=== PATIENT | female | born 1940 | race Caucasian/White ===

== ENCOUNTER 2019-04-05 11:30 | Emergency (ER) | payer OTHER, MEDICARE ==
--- OUTSIDE RECORDS SUMMARY | 2019-04-05 11:32 | XMS REPORT ---
:1940 [facility] Address [address] [place] [address] Care Team Providers Name Role Phone Unavailable Unavailable Unavailable Payers Payer Name Policy Type Policy Number Effective Date Expiration Date Problems This patient has no known problems. Allergies, Adverse Reactions, Alerts Allergy Allergy Status Severity Reaction(s) Onset Inactive Treating Comments Name Type Date Date Clinician No Known DA Active U 2018-05 Allergies -19 00:00:0 0 Medications This patient has no known medications. Results Test Description Test Time Test Comments Text Results Atomic Results Result Comments - XR FLUORO FOR SPINE 2019-02-13 16:12:00 Patient Name: STEWART HUGHES INJ Unit No: [id number] Report Has Been Amended EXAMS: CPT CODE: [id number] XR FLUORO FOR SPINE INJ 89224 Addendum - 02/13/2019 SIGNED 02/13/2019 ADDENDUM: [id number] RAD/FLLOCSPI LUMBAR TRANSFORAMINAL INJECTION REFERRING PHYSICIAN: PREOPERATIVE DIAGNOSIS: Degenerative Lumbar Disc Disease. POSTOPERATIVE DIAGNOSIS: Lumbar radiculopathy PROCEDURES PERFORMED 1. Fluoroscopically guided needle localization of the right L4, right L5, right S1 spinal nerve/nerves with transforaminal epidural steroid injection/injections. 2. Transforaminal epidurogram/epidurograms at right L4, right L5, right S1. FINDINGS: Poor filling all. Concordant provocation right L5 hip. Pain relief-100%. ANTIBIOTIC: Cefazolin ESTIMATED BLOOD LOSS: Minimal ANESTHESIA: (TIVA )Total intravenous anesthetic (patient intolerant to sedatives and hypnotics) COMPLICATIONS: None DETAILS OF PROCEDURE: After obtaining stable vital signs, informed consent and IV access, with no known contraindications to proceeding, the patient was taken to the fluoroscopy suite and placed in a prone position with all extremities padded and appropriate monitors placed. A sterile prep and drape was performed over the lumbosacral spine. Using fluoroscopic visualization at each level the insertion site was marked for a paravertebral approach to the foramen. Using standard technique, a 25 gauge needle was advanced to the base of the pedicle. In AP view, final positioning was obtained outside the 6 on the clock position on the pedicle. Then, 1 ml of Isovue-300 contrast was injected to produce the epidurograms. No paresthesias were elicited with needle insertion or injection and there were no signs of intravascular or intrathecal uptake. Then, with 1 ml of 4% lidocaine and 10 mg of triamcinolone was injected incrementally with frequent negative aspirations. There were no signs of intravascular or intrathecal uptake. Each subsequent level was done using the same technique and medications. The patient's vital signs remained stable. The patient was taken to the PACU in good condition. Addended on 01/14/2019 3:51:27 PM by Rashel Peterson. [facility] NAME: STEWART HUGHES [address] [facility] PHYS: DOCUD - Rashel Peterson MD [place], [place] [address] : 1940 AGE: 77 SEX: F LOC: UNK PHONE #: [phone] EXAM DATE: 10/06/2018 STATUS: [facility] FAX #: [phone] RAD #: D/C DT PAGE 1 Signed Report (CONTINUED) Patient Name: STEWART HUGHES Unit No: [id number] Report Has Been Amended EXAMS: CPT CODE: [id number] XR FLUORO FOR SPINE INJ 96220 <Continued> LUMBAR FACET INJECTION REFERRING PHYSICIAN: PREOPERATIVE DIAGNOSIS: 1. Lumbar facet arthropathy POSTOPERATIVE DIAGNOSIS: 1. Bilateral lumbar facet spondylosis ( arthropathy) PROCEDURES PERFORMED Fluoroscopically guided needle localization of the bilateral L3-4, bilateral L5-S1 lumbar facets with injection of local anesthetic and steroids 2. Arthrograms of the bilateral L3-4, bilateral L5-S1 lumbar facets FINDINGS: 1. Concordant provocation bilateral L5-S1 facet for back pain ANTIBIOTIC: Cefazolin ESTIMATED BLOOD LOSS: Minimal ANESTHESIA: (TIVA) Total intravenous anesthetic (patient intolerant to sedatives and hypnotics). COMPLICATIONS: None DETAILS OF PROCEDURE: After obtaining stable vital signs, informed consent and IV access, with no known contraindications to proceeding, the patient was taken to the fluoroscopy suite and placed in a prone position with all extremities padded and appropriate monitors placed. A sterile prep and drape was performed over the lumbosacral spine. Using fluoroscopic visualization at each level the insertion site was marked for a paravertebral approach to the facets. Using standard technique, a 25 gauge needle was advanced to the facets. In AP view, the needle was advanced into the facets. Then, 1 ml of Isovue-300 contrast was injected to produce the arthrograms. AP, lateral and oblique views were documented. No paresthesias were elicited with needle insertion or injection and there were no signs of intravascular or intrathecal uptake. Then, 1 ml of 0.75% bupivacaine with 1 ml of 4% lidocaine and 10 mg of triamcinolone was injected incrementally with frequent negative aspirations. There were no signs of intravascular or intrathecal uptake. Each subsequent level was done using the same technique and medications. The patient's vital signs remained stable. The patient was taken to the PACU in good condition. [facility] NAME: STEWART HUGHES [address] [facility] PHYS: DOCCHAMP - Rashel Peterson MD [place], [place] [address] : 1940 AGE: 77 SEX: F LOC: UNK PHONE #: [phone] EXAM DATE: 10/06/2018 STATUS: [facility] FAX #: [phone] RAD #: D/C DT PAGE 2 Signed Report (CONTINUED) Patient Name: STEWART HUGHES Unit No: [id number] Report Has Been Amended EXAMS: CPT CODE: [id number] XR FLUORO FOR SPINE INJ 60645 <Continued> at 1612 Reported and signed by: Rashel Peterson M.D. Addendum - 01/14/2019 SIGNED 01/14/2019 ADDENDUM: [id number] RAD/FLLOCSPI LUMBAR FACET INJECTION REFERRING PHYSICIAN: PREOPERATIVE DIAGNOSIS: 1. Lumbar facet arthropathy POSTOPERATIVE DIAGNOSIS: 1. Bilateral lumbar facet spondylosis without radiculopathy PROCEDURES PERFORMED Fluoroscopically guided needle localization of the bilateral L3-4, bilateral L5-S1 lumbar facets with injection of local anesthetic and steroids 2. Arthrograms of the bilateral L3-4, bilateral L5-S1 lumbar facets FINDINGS: 1. Concordant provocation bilateral L5-S1 facet for back pain ANTIBIOTIC: Cefazolin ESTIMATED BLOOD LOSS: Minimal ANESTHESIA: (TIVA) Total intravenous anesthetic (patient intolerant to sedatives and hypnotics). COMPLICATIONS: None DETAILS OF PROCEDURE: After obtaining stable vital signs, informed consent and IV access, with no known contraindications to proceeding, the patient was taken to the fluoroscopy suite and placed in a prone position with all extremities padded and appropriate monitors placed. A sterile prep and drape was performed over the lumbosacral spine. Using fluoroscopic visualization at each level the insertion site was marked for a paravertebral approach to the facets. Using standard technique, a 25 gauge needle was advanced to the facets. In AP view, the needle was advanced into the facets. Then, 1 ml of Isovue-300 contrast was injected to produce the arthrograms. AP, lateral and oblique views were documented. No paresthesias were elicited with needle insertion or injection and there were no signs of intravascular or intrathecal uptake. Then, 1 ml of 0.75% bupivacaine with 1 ml of 4% lidocaine and 10 mg of triamcinolone was injected incrementally [facility] NAME: STEWART HUGHES [address] [facility] PHYS: DOCUD - Doctor,Rashel Dennison MD [place], [place] [address] : 1940 AGE: 77 SEX: F LOC: UNK PHONE #: [phone] EXAM DATE: 10/06/2018 STATUS: [facility] FAX #: [phone] RAD #: D/C DT PAGE 3 Signed Report (CONTINUED) Patient Name: STEWART HUGHES Unit No: [id number] Report Has Been Amended EXAMS: CPT CODE: [id number] XR FLUORO FOR SPINE INJ 80291 <Continued> with frequent negative aspirations. There were no signs of intravascular or intrathecal uptake. Each subsequent level was done using the same technique and medications. The patient's vital signs remained stable. The patient was taken to the PACU in good condition. at 1551 Reported and signed by: Rashel Peterson M.D. Report LUMBAR TRANSFORAMINAL INJECTION REFERRING PHYSICIAN: PREOPERATIVE DIAGNOSIS: Degenerative Lumbar Disc Disease. POSTOPERATIVE DIAGNOSIS: Lumbar radiculopathy PROCEDURES PERFORMED 1. Fluoroscopically guided needle localization of the right L4, right L5, right S1 spinal nerve/nerves with transforaminal epidural steroid injection/injections. 2. Transforaminal epidurogram/epidurograms at right L4, right L5, right S1. FINDINGS: Poor filling all. Concordant provocation right L5 hip. Pain relief-100%. ANTIBIOTIC: Cefazolin ESTIMATED BLOOD LOSS: Minimal ANESTHESIA: (TIVA )Total intravenous anesthetic (patient intolerant to sedatives and hypnotics) COMPLICATIONS: None DETAILS OF PROCEDURE: After obtaining stable vital signs, informed consent and IV access, with no known contraindications to proceeding, the patient was taken to the fluoroscopy suite and placed in a prone position with all extremities padded and appropriate monitors placed. A sterile prep and drape was performed over the lumbosacral spine. Using fluoroscopic visualization at each level the insertion site was marked for a paravertebral approach to the foramen. Using standard technique, a 25 gauge needle was advanced to the base of the pedicle. In AP view, final positioning was obtained outside the 6 on the clock position on the pedicle. Then, 1 ml of Isovue-300 contrast was [facility] NAME: STEWART HUGHES [address] [facility] PHYS: DOCUD - DoctorRashel MD [place], [place] [address] : 1940 AGE: 77 SEX: F LOC: UNK PHONE #: [phone] EXAM DATE: 10/06/2018 STATUS: [facility] FAX #: [phone] RAD #: D/C DT PAGE 4 Signed Report (CONTINUED) Patient Name: STEWART HUGHES Unit No: [id number] Report Has Been Amended EXAMS: CPT CODE: [id number] XR FLUORO FOR SPINE INJ 41153 <Continued> injected to produce the epidurograms. No paresthesias were elicited with needle insertion or injection and there were no signs of intravascular or intrathecal uptake. Then, with 1 ml of 4% lidocaine and 10 mg of triamcinolone was injected incrementally with frequent negative aspirations. There were no signs of intravascular or intrathecal uptake. Each subsequent level was done using the same technique and medications. The patient's vital signs remained stable. The patient was taken to the PACU in good condition. at 1321 Reported and signed by: Rashel Peterson M.D. CC: Hernán Fried MD; Rashel Peterson MD Technologist: BABAK PABON RT(R) Transcribed D/ (2302) Michelle [facility] NAME: STEWART HUGHES [address] [facility] PHYS: Rashel Anderson MD [place] [address] : 1940 AGE: 77 SEX: F LOC: [facility] PHONE #: [phone] EXAM DATE: 10/06/2018 STATUS: [facility] FAX #: [phone] RAD #: D/C DT PAGE 5 Signed Report Patient Name: STEWART HUGHES Unit No: [id number] Report Has Been Amended EXAMS: CPT CODE: [id number] XR FLUORO FOR SPINE INJ 19107 <Continued> Orig Print D/T: S: 10/06/2018 (6483) [facility] NAME: STEWART HUGHES [address] [facility] PHYS: Rashel Anderson MD [place], [place] [address] : 1940 AGE: 77 SEX: F LOC: [facility] PHONE #: [phone] EXAM DATE: 10/06/2018 STATUS: [facility] FAX #: [phone] RAD #: D/C DT PAGE 6 Signed Report - XR FLUORO FOR SPINE 2019-01-14 15:51:00 Patient Name: STEWART HUGHES INJ Unit No: [id number] Report Has Been Amended EXAMS: CPT CODE: [id number] XR FLUORO FOR SPINE INJ 30217 Addendum - 01/14/2019 SIGNED 01/14/2019 ADDENDUM: [id number] RAD/FLLOCSPI LUMBAR FACET INJECTION REFERRING PHYSICIAN: PREOPERATIVE DIAGNOSIS: 1. Lumbar facet arthropathy POSTOPERATIVE DIAGNOSIS: 1. Bilateral lumbar facet spondylosis without radiculopathy PROCEDURES PERFORMED Fluoroscopically guided needle localization of the bilateral L3-4, bilateral L5-S1 lumbar facets with injection of local anesthetic and steroids 2. Arthrograms of the bilateral L3-4, bilateral L5-S1 lumbar facets FINDINGS: 1. Concordant provocation bilateral L5-S1 facet for back pain ANTIBIOTIC: Cefazolin ESTIMATED BLOOD LOSS: Minimal ANESTHESIA: (TIVA) Total intravenous anesthetic (patient intolerant to sedatives and hypnotics). COMPLICATIONS: None DETAILS OF PROCEDURE: After obtaining stable vital signs, informed consent and IV access, with no known contraindications to proceeding, the patient was taken to the fluoroscopy suite and placed in a prone position with all extremities padded and appropriate monitors placed. A sterile prep and drape was performed over the lumbosacral spine. Using fluoroscopic visualization at each level the insertion site was marked for a paravertebral approach to the facets. Using standard technique, a 25 gauge needle was advanced to the facets. In AP view, the needle was advanced into the facets. Then, 1 ml of Isovue-300 contrast was injected to produce the arthrograms. AP, lateral and oblique views were documented. No paresthesias were elicited with needle insertion or injection and there were no signs of intravascular or intrathecal uptake. Then, 1 ml of 0.75% bupivacaine with 1 ml of 4% lidocaine and 10 mg of triamcinolone was injected incrementally with frequent negative aspirations. There were no signs of intravascular or intrathecal uptake. Each subsequent level was done using the same technique and medications. The patient's vital signs remained stable. The patient was taken to the PACU in good condition. [facility] NAME: ELLENSTEWART GOLD [address] [facility] PHYS: DOCUD - Doctor,Rashel Dennison MD [place], [place] [address] : 1940 AGE: 77 SEX: F LOC: UNK PHONE #: [phone] EXAM DATE: 10/06/2018 STATUS: [facility] FAX #: [phone] RAD #: D/C DT PAGE 1 Signed Report (CONTINUED) Patient Name: STEWART HUGHES Unit No: [id number] Report Has Been Amended EXAMS: CPT CODE: [id number] XR FLUORO FOR SPINE INJ 80527 <Continued> at 1551 Reported and signed by: Rashel Peterson M.D. Report LUMBAR TRANSFORAMINAL INJECTION REFERRING PHYSICIAN: PREOPERATIVE DIAGNOSIS: Degenerative Lumbar Disc Disease. POSTOPERATIVE DIAGNOSIS: Lumbar radiculopathy PROCEDURES PERFORMED 1. Fluoroscopically guided needle localization of the right L4, right L5, right S1 spinal nerve/nerves with transforaminal epidural steroid injection/injections. 2. Transforaminal epidurogram/epidurograms at right L4, right L5, right S1. FINDINGS: Poor filling all. Concordant provocation right L5 hip. Pain relief-100%. ANTIBIOTIC: Cefazolin ESTIMATED BLOOD LOSS: Minimal ANESTHESIA: (TIVA )Total intravenous anesthetic (patient intolerant to sedatives and hypnotics) COMPLICATIONS: None DETAILS OF PROCEDURE: After obtaining stable vital signs, informed consent and IV access, with no known contraindications to proceeding, the patient was taken to the fluoroscopy suite and placed in a prone position with all extremities padded and appropriate monitors placed. A sterile prep and drape was performed over the lumbosacral spine. Using fluoroscopic visualization at each level the insertion site was marked for a paravertebral approach to the foramen. Using standard technique, a 25 gauge needle was advanced to the base of the pedicle. In AP view, final positioning was obtained outside the 6 on the clock position on the pedicle. Then, 1 ml of Isovue-300 contrast was injected to produce the epidurograms. No paresthesias were elicited with needle insertion or injection and there were no signs of intravascular or intrathecal uptake. Then, with 1 ml of 4% lidocaine and 10 mg of triamcinolone was injected incrementally with frequent negative aspirations. There were no signs of intravascular or intrathecal uptake. Each subsequent level was done using the same [facility] NAME: STEWART HUGHES [address] [facility] PHYS: DOCUD - Rashel Peterson MD [place], [place] [address] : 1940 AGE: 77 SEX: F LOC: UNK PHONE #: [phone] EXAM DATE: 10/06/2018 STATUS: [facility] FAX #: [phone] RAD #: D/C DT PAGE 2 Signed Report (CONTINUED) Patient Name: STEWART HUGHES Unit No: [id number] Report Has Been Amended EXAMS: CPT CODE: [id number] XR FLUORO FOR SPINE INJ 46227 <Continued> technique and medications. The patient's vital signs remained stable. The patient was taken to the PACU in good condition. at 1321 Reported and signed by: Rashel Peterson M.D. CC: Hernán Fried MD; Rashel Peterson MD Technologist: BABAK PABON RT(R) Transcribed D/ (7451) Tracey[facility] NAME: STEWART HUGHES [address] [place] [address] PHYS: Rashel Anderson MD [place] [address] : 1940 AGE: 77 SEX: F LOC: [facility] PHONE #: [phone] EXAM DATE: 10/06/2018 STATUS: [facility] FAX #: [phone] RAD #: D/C DT PAGE 3 Signed Report Patient Name: STEWART HUGHES Unit No: [id number] Report Has Been Amended EXAMS: CPT CODE: [id number] XR FLUORO FOR SPINE INJ 08012 <Continued> Orig Print D/T: S: 10/06/2018 (3824) [facility] NAME: STEWART HUGHES [address] [facility] PHYS: Rashel Anderson MD [place] [address] : 1940 AGE: 77 SEX: F LOC: UNK PHONE #: [phone] EXAM DATE: 10/06/2018 STATUS: [facility] FAX #: [phone] RAD #: D/C DT PAGE 4 Signed Report - XR FLUORO FOR SPINE 2018-10-06 13:21:00 Patient Name: STEWART HUGHES INJ Unit No: [id number] EXAMS: CPT CODE: [id number] XR FLUORO FOR SPINE INJ 47238 LUMBAR TRANSFORAMINAL INJECTION REFERRING PHYSICIAN: PREOPERATIVE DIAGNOSIS: Degenerative Lumbar Disc Disease. POSTOPERATIVE DIAGNOSIS: Lumbar radiculopathy PROCEDURES PERFORMED 1. Fluoroscopically guided needle localization of the right L4, right L5, right S1 spinal nerve/nerves with transforaminal epidural steroid injection/injections. 2. Transforaminal epidurogram/epidurograms at right L4, right L5, right S1. FINDINGS: Poor filling all. Concordant provocation right L5 hip. Pain relief-100%. ANTIBIOTIC: Cefazolin ESTIMATED BLOOD LOSS: Minimal ANESTHESIA: (TIVA )Total intravenous anesthetic (patient intolerant to sedatives and hypnotics) COMPLICATIONS: None DETAILS OF PROCEDURE: After obtaining stable vital signs, informed consent and IV access, with no known contraindications to proceeding, the patient was taken to the fluoroscopy suite and placed in a prone position with all extremities padded and appropriate monitors placed. A sterile prep and drape was performed over the lumbosacral spine. Using fluoroscopic visualization at each level the insertion site was marked for a paravertebral approach to the foramen. Using standard technique, a 25 gauge needle was advanced to the base of the pedicle. In AP view, final positioning was obtained outside the 6 on the clock position on the pedicle. Then, 1 ml of Isovue-300 contrast was injected to produce the epidurograms. No paresthesias were elicited with needle insertion or injection and there were no signs of intravascular or intrathecal uptake. Then, with 1 ml of 4% lidocaine and 10 mg of triamcinolone was injected incrementally with frequent negative aspirations. There were no signs of intravascular or intrathecal uptake. Each subsequent level was done using the same technique and medications. The patient's vital signs remained stable. The patient was taken to the PACU in good condition. at 1321 Reported and signed by: Rashel Peterson M.D. [facility] NAME: STEWART HUGHES [address] [facility] PHYS: DOCUD - Rashel Peterson MD [place], [place] [address] : 1940 AGE: 77 SEX: F LOC: [facility] PHONE #: [phone] EXAM DATE: 10/06/2018 STATUS: [facility] FAX #: [phone] RAD #: D/C DT PAGE 1 Signed Report (CONTINUED) Patient Name: STEWART HUGHES Unit No: [id number] EXAMS: CPT CODE: [id number] XR FLUORO FOR SPINE INJ 94700 <Continued> CC: Hernán Fried MD; Rashel Peterson MD Technologist: BABAK PABON RT(R) Transcribed D/ (1321) tJENNARJeisonUVD [facility] NAME: STEWART HUGHES [address] [facility] PHYS: Rashel Anderson MD [place] [address] : 1940 AGE: 77 SEX: F LOC: EDDY PHONE #: [phone] EXAM DATE: 10/06/2018 STATUS: [facility] FAX #: [phone] RAD #: D/C DT PAGE 2 Signed Report Patient Name: STEWART HUGHES Unit No: [id number] EXAMS: CPT CODE: [id number] XR FLUORO FOR SPINE INJ 98316 <Continued> Orig Print D/T: S: 10/06/2018 (1324) [facility] NAME: STEWART HUGHES [address] [facility] PHYS: Rashel Anderson MD [place] [address] : 1940 AGE: 77 SEX: F LOC: EDDY PHONE #: [phone] EXAM DATE: 10/06/2018 STATUS: [facility] FAX #: [phone] RAD #: D/C DT PAGE 3 Signed Report GLUBED 2018-10-06 12:20:00 Test Item Value Reference Range Comments GLUBED (test code=GLUBED) 111 mg/dL 60-125 [id number] 10:17:00 Test Item Value Reference Range Comments GLUBED (test code=GLUBED) 129 mg/dL 60-125 - XR FLUORO FOR SPINE [id number] 12:21:00 Patient Name: STEWART HUGHES Unit No: [id number] EXAMS: CPT CODE: [id number] XR FLUORO FOR SPINE INJ 87420 LUMBAR TRANSFORAMINAL INJECTION REFERRING PHYSICIAN:Deng Grover M.D. PREOPERATIVE DIAGNOSIS: Degenerative Lumbar Disc Disease. POSTOPERATIVE DIAGNOSIS: Right lumbar radiculopathy PROCEDURES PERFORMED 1. Fluoroscopically guided needle localization of the right L2, right L3, right L4 spinal nerve/nerves with transforaminal epidural steroid injection/injections. 2. Transforaminal epidurogram/epidurograms at right L2, right L3, right L4. FINDINGS: Poor filling right L3, right L4. Concordant provocation right L4 hip. Pain relief-100%. ANTIBIOTIC: Cefazolin ESTIMATED BLOOD LOSS: Minimal ANESTHESIA: (TIVA )Total intravenous anesthetic (patient intolerant to sedatives and hypnotics) COMPLICATIONS: None DETAILS OF PROCEDURE: After obtaining stable vital signs, informed consent and IV access, with no known contraindications to proceeding, the patient was taken to the fluoroscopy suite and placed in a prone position with all extremities padded and appropriate monitors placed. A sterile prep and drape was performed over the lumbosacral spine. Using fluoroscopic visualization at each level the insertion site was marked for a paravertebral approach tothe foramen. Using standard technique, a 25 gauge needle was advanced to the base of the pedicle. In AP view, final positioning was obtained outside the 6 on the clock position on thepedicle. Then, 1 ml of Isovue-300 contrast was injected to produce the epidurograms. No paresthesias were elicited with needle insertion or injection and there were no signs of intravascular or intrathecal uptake. Then, with 1 ml of 4% lidocaine and 10 mg of triamcinolone wasinjected incrementally with frequent negative aspirations. There were no signs of intravascular or intrathecal uptake. Each subsequent level was done using the same technique and medications. The patient's vital signs remained stable. The patient was taken to the PACU in good condition. at 1221 Reported and signed by: Rashel Peterson M.D. [facility] NAME: STEWART HUGHES [address] [facility] PHYS: DOCUD - DoctorRashel MD [place], [place] [address] : 1940 AGE: 77 SEX: F LOC: EDDY PHONE #: [phone] EXAM DATE: 06/04/2018 STATUS: [facility] FAX #: [phone] RAD #: D/C DT PAGE 1 Signed Report ( CONTINUED) Patient Name: STEWART HUGHES Unit No: [id number] EXAMS: CPT CODE: [id number] XR FLUORO FOR SPINE INJ 19289 <Continued> CC: Hernán Fried MD; Deng Grover MD Technologist: Kim Zepeda(R) Transcribed D/T: 2018 (1221) Tracey[facility] NAME: STEWART HUGHES [facility] PHYS: Rasehl Anderson MD [place] [address] : 1940 AGE: 77 SEX: F LOC: EDDY PHONE #: [phone] EXAM DATE: 06/04/2018 STATUS: [facility] FAX #: [phone] RAD #: D/C DT PAGE 2 Signed Report Patient Name: STEWART HUGHES Unit No: [id number] EXAMS: CPTCODE: [id number] XR FLUORO FOR SPINE INJ 45378 <Continued> Orig Print D/T: S : 06/04/2018 (1225) [facility] NAME: STEWART HUGHES [facility] PHYS: Rashel Anderson MD [place] [address] : 1940 AGE : 77 SEX: F LOC : EDDY PHONE #: [phone] EXAM DATE: 06/04/2018 STATUS : REG [employer] FAX #: [phone] RAD #: D/C DT PAGE 3 Signed [id number] 11:49:00 Test Item Value Reference Range Comments GLUBED (test code=GLUBED) 117 mg/dL 60-125 [id number] 10:36:00 Test Item Value Reference Range Comments GLUBED (test code=GLUBED) 115 mg/dL 60-125
[2019-04-05] MEDS ORDERED: KETOROLAC 30 MG/ML INJ ONE (12:23)
[2019-04-05] MEDS ORDERED: HYDROCODONE/APAP 10/325 TAB ONE (12:23)
[2019-04-05] MEDS ORDERED: CYCLOBENZAPRINE 10 MG TAB ONE ×2 (12:23→12:29)
--- NOTE | 2019-04-05 12:48 | RAD REPORT ---
EXAM DESCRIPTION: RAD - Hip Left 2 View - 04/05/2019 12:42 pm CLINICAL HISTORY: PAIN COMPARISON: Hip Left 2 View dated 08/06/2016 FINDINGS: Mild degenerative changes are present. No fracture, dislocation or AVN.
--- NOTE | 2019-04-05 13:19 | RAD REPORT ---
EXAM DESCRIPTION: CT - Hip Left Wo Con - 04/05/2019 1:09 pm CLINICAL HISTORY: left hip pain Left hip pain and swelling. COMPARISON: C Spine Wo Con dated 04/18/2018; Thoracic Spine W/o Cont dated 04/18/2018No comparisons FINDINGS: Prominent lower lumbar degenerative changes are present. Arthritic changes are present involving the left hip, mild in severity. No acute fractures seen. No d islocation or evidence of AVN Small air bubble in the urinary bladder could indicate cystitis. No pelvic mass or hematoma. Sigmoid diverticulosis. IMPRESSION: No acute left hip abnormality seen. Suggest clinical correlation for the possibility of cystitis All CT scans are performed using dose optimization technique as appropriate and may include automated exposure control or mA/KV adjustment according to patient size.
--- NOTE | 2019-04-05 13:58 | EDPHYS ---
Physician Documentation [facility] Name: Naila Dunbar Age: 78 yrs Sex: Female : 1940 Arrival Date: 04/05/2019 Time: 11:33 Bed 20 Private MD: ED Physician Jones Espana HPI: 04/05 12:18 This 78 yrs old Female presents to ER via Wheelchair with complaints of left kdr lateral hip pain. 12:18 The patient or guardian reports decreased range of motion, pain. that occurred at home, kdr sustained from unknown reason, There is no obvious deformity, The patient is able to ambulate with assistance. The patient is able to bear their full body weight. There is no radiation of the patient's discomfort. The complaints affect the left hip. Onset: The symptoms/episode began/occurred gradually, 2 week(s) ago. 15:15 Modifying factors: The symptoms are alleviated by nothing, the symptoms are aggravated kdr by any movement. Associated signs and symptoms: Loss of consciousness: the patient experienced no loss of consciousness, Pertinent positives: of the left hip. Severity of symptoms: At their worst the symptoms were moderate, severe, incapacitating, just prior to arrival, in the emergency department the symptoms are unchanged. The patient has been having pain in her left hip for about two weeks. had seen Dr. Fried last week who put her on steroids and T#3. The patient continues to have left later hip pain that is more pronounced with movement. When she remains still, the pain mostly resolves. She denies any specific injury. When she saw Dr. Fried earlier this week, he had suggested that she may have bursitis. The medications he prescribed have not given her relief and she could not wait until Dr. Fried returned from vacation. Historical: - Allergies: 11:45 No Known Allergies; tw2 - Home Meds: 11:45 Metformin Oral 2 times per day [Active]; tw2 11:54 atorvastatin 10 mg oral tab 1 tab once daily [Active]; colestipol micronized, 1 gram tw2 daily po [Active]; spironolactone 50 mg Oral tab 1 tab 2 times per day [Active]; Lyrica 150 mg Oral 1 cap daily [Active]; Cosamin DS 500-400 mg oral tab [Active]; - PMHx: 11:45 Diabetes - NIDDM; Hypertension; tw2 - PSHx: 11:45 back surgery; Cholecystectomy; left rotator cuff repair; tw2 - Immunization history:: Adult Immunizations. - Social history:: Smoking status: . - Ebola Screening: : Patient denies travel to an Ebola-affected area in the 21 days before illness onset. ROS: 15:15 Constitutional: Negative for fever, chills, and weight loss, Eyes: Negative for injury, kdr pain, redness, and discharge, ENT: Negative for injury, pain, and discharge, Neck: Negative for injury, pain, and swelling, Cardiovascular: Negative for chest pain, palpitations, and edema, Respiratory: Negative for shortness of breath, cough, wheezing, and pleuritic chest pain, Abdomen/GI: Negative for abdominal pain, nausea, vomiting, diarrhea, and constipation, Back: Negative for injury and pain, : Negative for injury, bleeding, discharge, and swelling, Skin: Negative for injury, rash, and discoloration, Neuro: Negative for headache, weakness, numbness, tingling, and seizure activity. Psych: Negative for depression, anxiety, suicide ideation, homicidal ideation, and hallucinations, Allergy/Immunology: Negative for hives, rash, and allergies, Endocrine: Negative for neck swelling, polydipsia, polyuria, polyphagia, and marked weight changes, Hematologic/Lymphatic: Negative for swollen nodes, abnormal bleeding, and unusual bruising. 15:15 MS/extremity: Positive for decreased range of motion, pain, tenderness, of the left hip. Exam: 15:15 Constitutional: This is a well developed, well nourished patient who is awake, alert, kdr and in no acute distress. Head/Face: Normocephalic, atraumatic. Eyes: Pupils equal round and reactive to light, extra-ocular motions intact. Lids and lashes normal. Conjunctiva and sclera are non-icteric and not injected. Cornea within normal limits. Periorbital areas with no swelling, redness, or edema. Neck: Trachea midline, no thyromegaly or masses palpated, and no cervical lymphadenopathy. Supple, full range of motion without nuchal rigidity, or vertebral point tenderness. No Meningismus. Chest/axilla: Normal chest wall appearance and motion. Nontender with no deformity. No lesions are appreciated. Cardiovascular: Regular rate and rhythm with a normal S1 and S2. No gallops, murmurs, or rubs. Normal PMI, no JVD. No pulse deficits. Respiratory: Lungs have equal breath sounds bilaterally, clear to auscultation and percussion. No rales, rhonchi or wheezes noted. No increased work of breathing, no retractions or nasal flaring. Abdomen/GI: Soft, non-tender, with normal bowel sounds. No distension or tympany. No guarding or rebound. No evidence of tenderness throughout. Back: No spinal tenderness. No costovertebral tenderness. Full range of motion. Skin: Warm, dry with normal turgor. Normal color with no rashes, no lesions, and no evidence of cellulitis. Neuro: Awake and alert, GCS 15, oriented to person, place, time, and situation. Cranial nerves II-XII grossly intact. Motor strength 5/5 in all extremities. Sensory grossly intact. Cerebellar exam normal. Normal gait. Psych: Awake, alert, with orientation to person, place and time. Behavior, mood, and affect are within normal limits. 15:15 Musculoskeletal/extremity: ROM: limited active range of motion, in the left hip, limited passive range of motion, Circulation is intact in all extremities. Sensation intact. Vital Signs: 11:50 BP 155 / 90; Pulse 78; Resp 16; Temp 98.0; Pulse Ox 95% on R/A; Weight 95.25 kg; Height iw 5 ft. 6 in. (167.64 cm); Pain 8/10; 13:57 BP 127 / 80; Pulse 85; Resp 17; Pulse Ox 96% on R/A; Pain 0/10; tw2 11:50 Body Mass Index 33.89 (95.25 kg, 167.64 cm) iw MDM: 13:57 Patient medically screened. kdr 15:15 Data reviewed: vital signs, nurses notes, lab test result(s), radiologic studies. kdr Counseling: I had a detailed discussion with the patient and/or guardian regarding: the historical points, exam findings, and any diagnostic results supporting the discharge/admit diagnosis, lab results, radiology results. 04/05 12:18 Order name: Hip Left 2 View XRAY; Complete Time: 13:20 kdr 04/05 13:11 Order name: Hip Left Wo Con; Complete Time: 13:41 EDMS Administered Medications: 12:26 Drug: [place] 10 mg-325 mg 1 tabs Route: PO; tw2 13:56 Follow up: Response: No adverse reaction; Pain is decreased; RASS: Alert and Calm (0) tw2 12:27 Drug: TORadol 15 mg Route: IM; Site: right deltoid; tw2 13:55 Follow up: Response: No adverse reaction tw2 12:28 Drug: Flexeril 10 mg Route: PO; tw2 13:56 Follow up: Response: No adverse reaction tw2 12:29 CANCELLED (Duplicate Order): TORadol - Ketorolac 15 mg IVP once tw2 Disposition: 04/05/19 13:57 Discharged to Home. Impression: Pain in left hip - Degenerative changes. - Condition is Stable. - Discharge Instructions: Joint Pain, Arthritis, Musculoskeletal Pain, Hip Pain. - Prescriptions for ketorolac 10 mg Oral tablet - take 1 tablet by ORAL route every 6 hours As needed not to exceed 40 mg in 24hrs; 12 tablet. Prednisone 20 mg Oral Tablet - take 1 tablet by ORAL route once daily for 5 days; 5 tablet. Cyclobenzaprine 5 mg Oral Tablet - take 1 tablet by ORAL route 3 times per day As needed; 15 tablet. - Medication Reconciliation Form, Thank You Letter, Prescription Opioid Use form. - Follow up: Hernán Fried MD; When: 2 - 3 days; Reason: If symptoms return, Further diagnostic work-up, Recheck today's complaints, Continuance of care, Re-evaluation by your physician. - Problem is an ongoing problem. - Symptoms have improved. Signatures: Dispatcher [employer] [facility] Jones Espana MD MD kdr Cris Lora RN RN tw2 Corrections: (The following items were deleted from the chart) 11:54 11:45 Home Meds: Blood pressure meds; tw2 tw2 12:29 12:18 TORadol - Ketorolac 15 mg IVP once ordered. kdr tw2 13:11 12:19 Pelvis Wo Cont+CT.RAD.BRZ ordered. [facility] 14:13 13:57 04/05/2019 13:57 Discharged to Home. Impression: Pain in left hip - Degenerative tw2 changes. Condition is Stable. Forms are Medication Reconciliation Form, Thank You Letter, Antibiotic Education, Prescription Opioid Use. Follow up: Hernán Fried; When: 2 - 3 days; Reason: If symptoms return, Further diagnostic work-up, Recheck today's complaints, Continuance of care, Re-evaluation by your physician. Problem is an ongoing problem. Symptoms have improved. kdr
--- NOTE | 2019-04-05 13:58 | ER ---
Nurse's Notes [facility] Name: Naila Dunbar Age: 78 yrs Sex: Female : 1940 Arrival Date: 04/05/2019 Time: 11:33 Bed 20 Private MD: Diagnosis: Pain in left hip-Degenerative changes Presentation: 04/05 11:44 Transition of care: patient was not received from another setting of care. Risk tw2 Assessment: Do you want to hurt yourself or someone else? Patient reports no desire to harm self or others. Care prior to arrival: None. 11:44 Method Of Arrival: Wheelchair tw2 11:49 Presenting complaint: Patient states: chronic back pain, was diagnosed with bursitis iw recently, given a steroid shot and steroid pills by Dr. Fried. Onset of symptoms was April 01, 2019. Initial Sepsis Screen: Does the patient meet any 2 criteria? No. Patient's initial sepsis screen is negative. Does the patient have a suspected source of infection? No. Patient's initial sepsis screen is negative. 11:49 Acuity: NYLA 3 iw Triage Assessment: 14:13 General: Appears in no apparent distress. Behavior is calm, cooperative, appropriate tw2 for age. Musculoskeletal: Range of motion: intact in all extremities. Historical: - Allergies: 11:45 No Known Allergies; tw2 - Home Meds: 11:45 Metformin Oral 2 times per day [Active]; tw2 11:54 atorvastatin 10 mg oral tab 1 tab once daily [Active]; colestipol micronized, 1 gram tw2 daily po [Active]; spironolactone 50 mg Oral tab 1 tab 2 times per day [Active]; Lyrica 150 mg Oral 1 cap daily [Active]; Cosamin DS 500-400 mg oral tab [Active]; - PMHx: 11:45 Diabetes - NIDDM; Hypertension; tw2 - PSHx: 11:45 back surgery; Cholecystectomy; left rotator cuff repair; tw2 - Immunization history:: Adult Immunizations. - Social history:: Smoking status: . - Ebola Screening: : Patient denies travel to an Ebola-affected area in the 21 days before illness onset. Screenin:44 Abuse screen: Denies threats or abuse. Nutritional screening: No deficits noted. tw2 Tuberculosis screening: No symptoms or risk factors identified. Fall Risk Secondary diagnosis (15 points) impaired mobility, Ambulatory Aid- Crutches/Cane/Walker (15 pts). Assessment: 11:45 General: Appears uncomfortable, well groomed, Behavior is calm, cooperative, tw2 appropriate for age. Pain: Complains of pain in pelvis and left hip. Neuro: Level of Consciousness is awake, alert, obeys commands, Oriented to person, place, time, situation. Cardiovascular: Patient's skin is warm and dry. Respiratory: Airway is patent Respiratory effort is even, unlabored, Respiratory pattern is regular, symmetrical. GI: No signs and/or symptoms were reported involving the gastrointestinal system. : No signs and/or symptoms were reported regarding the genitourinary system. EENT: No signs and/or symptoms were reported regarding the EENT system. Derm: No signs and/or symptoms reported regarding the dermatologic system. Musculoskeletal: Range of motion: limited in left hip. 12:08 Reassessment: provider at bedside at this time. tw2 13:58 Reassessment: Patient appears in no apparent distress at this time. Patient and/or tw2 family updated on plan of care and expected duration. Pain level reassessed. Patient is alert, oriented x 3, equal unlabored respirations, skin warm/dry/pink. Patient denies pain at this time. Patient states feeling better. Patient states symptoms have improved. Vital Signs: 11:50 BP 155 / 90; Pulse 78; Resp 16; Temp 98.0; Pulse Ox 95% on R/A; Weight 95.25 kg; Height iw 5 ft. 6 in. (167.64 cm); Pain 8/10; 13:57 BP 127 / 80; Pulse 85; Resp 17; Pulse Ox 96% on R/A; Pain 0/10; tw2 11:50 Body Mass Index 33.89 (95.25 kg, 167.64 cm) iw ED Course: 11:33 Patient arrived in ED. mr 11:41 Jones Espana MD is Attending Physician. kdr 11:44 Cris Lora, ANDREW is Primary Nurse. tw2 11:44 Bed in low position. Call light in reach. Adult w/ patient. tw2 11:44 Arm band placed on. tw2 11:50 Triage completed. iw 12:42 Hip Left 2 View XRAY In Process Unspecified. EDMS 13:11 Hip Left Wo Con In Process Unspecified. EDMS 13:56 Hernán Fried MD is Referral Physician. kdr 14:13 No provider procedures requiring assistance completed. Patient did not have IV access tw2 during this emergency room visit. Administered Medications: 12:26 Drug: [place] 10 mg-325 mg 1 tabs Route: PO; tw2 13:56 Follow up: Response: No adverse reaction; Pain is decreased; RASS: Alert and Calm (0) tw2 12:27 Drug: TORadol 15 mg Route: IM; Site: right deltoid; tw2 13:55 Follow up: Response: No adverse reaction tw2 12:28 Drug: Flexeril 10 mg Route: PO; tw2 13:56 Follow up: Response: No adverse reaction tw2 12:29 CANCELLED (Duplicate Order): TORadol - Ketorolac 15 mg IVP once tw2 Outcome: 13:57 Discharge ordered by . kdr 14:13 Patient left the ED. tw2 14:13 Discharged to home via wheelchair, with family. tw2 14:13 Condition: stable 14:13 Discharge instructions given to patient, family, Instructed on discharge instructions, follow up and referral plans. no drinking with medication, no driving heavy equipment, medication usage, Demonstrated understanding of instructions, follow-up care, medications, Prescriptions given X 3. Signatures: Dispatcher [employer] EDMS Jones Espana MD MD kdr Rivera, Michelle Gilman, RN ANDREW iw Cris Lora RN RN tw2 Corrections: (The following items were deleted from the chart) 11:54 11:45 Home Meds: Blood pressure meds; tw2 tw2
[2019-04-05 15:08] VITALS: TEMP 98
[2019-04-05 15:10] VITALS: BP 127/80; O2SAT 96
== END 2019-04-05 14:13 | disposition home or self-care (01) ==
LOC: ER 11:30
DX: M25.552 Pain in left hip (principal); I10 Essential (primary) hypertension; E11.9 Type 2 diabetes mellitus without complications
CPT/HCPCS: 73700; 96372; 99283

== ENCOUNTER 2020-05-12 20:20 | Emergency (ER) | payer OTHER, MEDICARE ==
--- OUTSIDE RECORDS SUMMARY | 2020-05-12 20:22 | XMS REPORT | Clinical Summary ---
:1940 Author Organization [facility] Address [address] [place] [address] Care Team Providers Name Role Phone MD Fariha Primary Care Provider Allergies No Known Active Allergies Medications Medication Sig Dispensed Refills Start Date End Date Status pregabalin (LYRICA) 75 Take 75 mg by 0 Active MG capsule mouth 2 (two) times a day. metFORMIN (GLUCOPHAGE) Take 500 mg by 0 Active 500 mg tablet mouth 2 (two) times a day with meals. cholecalciferol, Take 2,000 Units 0 Active vitamin D3, (VITAMIN by mouth daily. D3) 2,000 unit capsule capsule colchicine 0.6 mg Take 0.6 mg by 0 Active tablet mouth daily. irbesartan-hydrochlorot Take 1 tablet by 0 Active hiazide (AVALIDE) mouth daily. 300-12.5 mg per tablet naltrexone HCl 1.5 mg. 0 Activ e (NALTREXONE MISC) atorvastatin (LIPITOR) Take 10 mg by 0 Active 10 MG tablet mouth daily. allopurinol (ZYLOPRIM) Take 300 mg by 0 Active 300 MG tablet mouth daily. colestipol (COLESTID) 1 Take 1 g by mouth 0 Active gram tablet 2 (two) times a day. Active Problems Not on file Surgical History Surgery Date Site/Laterality Comments NECK SURGERY BACK SURGERY ROTATOR CUFF REPAIR Medical History Medical History Date Comments Wears glasses Stroke (cerebrum) (HCC) Gout Diabetes (HCC) Family History Medical History Relation Name Comments Diabetes Other Gout Other Hypertension Other Stroke Other Relation Name Status Comments Other Other Social History Tobacco Use Types Packs/Day Years Used Date Former Smoker Cigars 4 Smokeless Tobacco: Current User Comments: quit 54 years ago Alcohol Use Drinks/Week oz/Week Comments Yes Sex Assigned at Date Recorded Not on file Job Start Date Occupation Industry Not on file Not on file Not on file Last Filed Vital Signs Not on file Plan of Treatment Date Type Specialty Care Team Description 05/24/2020 Clinical Support Internal Medicine Health Maintenance Due Date Last Done Comments COVID-19 VACCINE (1 of 2) 1956 SHINGLES VACCINES (#1) 1990 65+ PNEUMOCOCCAL VACCINE (1 of 1 - PPSV23) 2005 INFLUENZA VACCINE 11/14/2019 Results Not on fileafter 05/12/2019 Insurance Payer Benefit Plan / Subscriber ID Effective Dates Phone Addre ss Type Group MEDICARE MEDICARE PART A [id number] 2005-Present [place], [place] Medicare AND B AARP AARP SUPPLEMENT [id number] 2005-Present Commercial Advance Directives For more information, please contact: [phone] Type Date Recorded Patient Lock Expert Explanati on Advance Directives, Living Will 11/08/2004 9:42 AM [id number] and Medical Power of Tail Edger
--- OUTSIDE RECORDS SUMMARY | 2020-05-12 20:22 | XMS REPORT | Continuity of Care Document ---
:1940 Author Organization [facility] t Address [address] [place] [place] [address] Care Team Providers Name Role Phone Fariha SANCHEZ Primary Care Physician Payers Payer Name Policy Type Policy Number Effective Date Expiration Date S ource Problems This patient has no known problems. Allergies, Adverse Reactions, Alerts Allergy Allergy Status Severity Reaction(s) Onset Inactive Treating Comm ents Source Name Type Date Date Clinician No Known DA Active U [facility] 06-03 [place] [facility] 00[facility] Family History Family Member Diagnosis Comments Start Date Stop Date Source Other Diabetes [facility] Other Gout [facility] Other Hypertension [facility] Other Stroke [facility] Social History Social Habit Start Date Stop Date Quantity Comments Source History of Cigar Smoker [facility] tobacco use Sex Assigned At [facility] Tobacco use and 2018-05-13 2018-05-13 Current user [facility] exposure 00:00:00 00:00:00 Alcohol intake 2018-05-13 2018-05-13 Current drinker [place] 00:00:00 00:00:00 of alcohol (finding) Tobacco Comment 2018-05-05 2018-05-05 quit 54 years [place] 00:00:00 00:00:00 ago Smoking Status Start Date Stop Date Source Former smoker 2018-05-13 00:00:00 2018-05-13 00:00:00 [facility] Medications Ordered Filled Start Stop Current Ordering Indication Dosage Frequency Signature Comments Components Source Medication Medication Date Date Medication? Clinician (SIG) Name Name pregabalin Yes 75mg Q.5D Take 75 mg [place] (LYRICA) 75 1-29 by mouth 2 Me thodi MG capsule 11:38: (two) st 43 times a day. metFORMIN Yes 500mg Q.5D Take 500 [place] [address] (GLUCOPHAGE 1-29 mg by Methodi ) 500 mg 11:38: mouth 2 st tablet 43 (two) times a day with meals. cholecalcif Yes 2000U QD Take 2,[address] [address], 1-29 Units by [facility] vitamin D3, 11:38: mouth st (VITAMIN 43 daily. D3) 2,000 unit capsule capsule colchicine Yes .6mg QD Take 0.6 [place] 0.6 mg 1-29 mg by [facility]i tablet 11:38: mouth st 43 daily. irbesartan- Yes 1{tbl} QD Take 1 [place] hydrochloro 1-29 tablet by Met hodi thiazide 11:38: mouth st (AVALIDE) 43 daily. 300-12.5 mg per tablet naltrexone Yes 1.5mg 1.5 mg. [place] HCl 1-29 Methodi (NALTREXONE 11:38: st MISC) 43 atorvastati Yes 10mg QD Take 10 mg [place] n (LIPITOR) 1-29 by mouth Meth pricila 10 MG 11:38: daily. st tablet 43 allopurinol Yes 300mg QD Take 300 [place] (ZYLOPRIM) 1-29 mg by Methodi 300 MG 11:38: mouth st tablet 43 daily. colestipol Yes 1g Q.5D Take 1 g [place] st[place] (COLESTID) 1-29 by mouth 2 Met hodi 1 gram 11:38: (two) st tablet 43 times a day. Procedures This patient has no known procedures. Plan of Care Planned Activity Planned Date Details Comments Source Future Scheduled 2019-11-14 INFLUENZA VACCINE [facility] Test 00:00:00 [code = INFLUENZA VACCINE] Future Scheduled 2005 65+ PNEUMOCOCCAL [facility] Test 00:00:00 VACCINE (1 of 1 - PPSV23) [code = 65+ PNEUMOCOCCAL VACCINE (1 of 1 - PPSV23)] Future Scheduled 1990 SHINGLES VACCINES (#1) [place] [facility] Test 00:00:00 [code = SHINGLES VACCINES (#1)] Future Scheduled 1956 COVID-19 VACCINE (1 of [place] [facility] Test 00:00:00 2) [code = COVID-19 VACCINE (1 of 2)] Results Test Description Test Time Test Comments Results Result [facility] e Comments - XR FLUORO FOR 2019-02-13 Patient Name: SPINE INJ 16:12:00 STEWART HUGHES Unit No: [id number] Report Has Been Amended EXAMS: CPT CODE: [id number] XR FLUORO FOR SPINE INJ 30223 Addendum - 02/13/2019 SIGNED 02/13/2019 ADDENDUM: [id number] RAD/FLLOCSPI LUMBAR TRANSFORAMINAL INJECTION REFERRING PHYSICIAN: PREOPERATIVE DIAGNOSIS: Degenerative Lumbar Disc Disease. POSTOPERATIVE DIAGNOSIS: Lumbar radiculopathy PROCEDURES PERFORMED 1. Fluoroscopically guided needle localization of the right L4, right L5, right S1 spinal nerve/nerves with transforaminal epidural steroid injection/injections. 2. Transforaminal epidurogram/epidurogram s at right L4, right L5, right S1. [...] on 01/14/2019 3:51:27 PM by Rashel Peterson. [facility] NAME: STEWART HUGHES [address] [facility] PHYS: DANNY - Rashel Peterson MD [place], [place] [address] : 1940 AGE: 77 SEX: F LOC: UNK PHONE #: [phone] EXAM DATE: 10/06/2018 STATUS: DEP [facility] FAX #: [phone] RAD #: D/C DT PAGE 1 Signed Report (CONTINUED) Patient Name: STEWART HUGHES Unit No: [id number] Report Has Been Amended EXAMS: CPT CODE: [id number] XR FLUORO FOR SPINE INJ 10563 <Continued> LUMBAR FACET INJECTION REFERRING PHYSICIAN: PREOPERATIVE [...] taken to the PACU in good condition. [facility] NAME: STEWART HUGHES [address] [facility] PHYS: DOCUD - DoctorRashel MD [place], [place] [address] : 1940 AGE: 77 SEX: F LOC: UNK PHONE #: [phone] EXAM DATE: 10/06/2018 STATUS: DEP [facility] FAX #: [phone] RAD #: D/C DT PAGE 2 Signed Report (CONTINUED) Patient Name: STEWART HUGHES Unit No: [id number] Report Has Been Amended EXAMS: CPT CODE: [id number] XR FLUORO FOR SPINE INJ 65503 <Continued> at 1612 Reported and signed by: Rashel Peterson M.D. Addendum - 01/14/2019 SIGNED 01/14/2019 ADDENDUM: [id number] RAD/FLLOCSPI LUMBAR FACET INJECTION REFERRING PHYSICIAN: PREOPERATIVE [...] 10 mg of triamcinolone was injected incrementally [facility] NAME: STEWART HUGHES [address] [facility] PHYS: DANNY - Rashel Peterson MD [place], [place] [address] : 1940 AGE: 77 SEX: F LOC: [place] PHONE #: [phone] EXAM DATE: 10/06/2018 STATUS: [facility] FAX #: [phone] RAD #: D/C DT PAGE 3 Signed Report (CONTINUED) Patient Name: STEWART HUGHES Unit No: [id number] Report Has Been Amended EXAMS: CPT CODE: [id number] XR FLUORO FOR SPINE INJ 92335 <Continued> with frequent negative aspirations. There were no signs of intravascular or intrathecal uptake. Each subsequent level was done using the same technique and medications. The patient's vital signs remained stable. The patient was taken to the PACU in good condition. at 4051 Reported and signed by: Rashel Peterson M.D. Report LUMBAR TRANSFORAMINAL INJECTION REFERRING PHYSICIAN: PREOPERATIVE DIAGNOSIS: Degenerative Lumbar Disc Disease. POSTOPERATIVE DIAGNOSIS: Lumbar radiculopathy PROCEDURES PERFORMED 1. Fluoroscopically guided needle localization of the right L4, right L5, right S1 spinal nerve/nerves with transforaminal epidural steroid injection/injections. 2. Transforaminal epidurogram/epidurogram s at right L4, right L5, right S1. [...] Then, 1 ml of Isovue-300 contrast was [facility] NAME: STEWART HUGHES [address] [facility] PHYS: DOCUD - Rashel Peterson MD [place], [place] [address] : 1940 AGE: 77 SEX: F LOC: [place] PHONE #: [phone] EXAM DATE: 10/06/2018 STATUS: [facility] FAX #: [phone] RAD #: D/C DT PAGE 4 Signed Report (CONTINUED) Patient Name: STEWART HUGHES Unit No: [id number] Report Has Been Amended EXAMS: CPT CODE: [id number] XR FLUORO FOR SPINE INJ 56831 <Continued> injected to produce the epidurograms. No [...] Technologist: BABAK PABON RT(R) Transcribed D/ (1321) t.SDR.UVD [facility] NAME: STEWART HUGHES [address] [place] [address] PHYS: DANNY - Rashel Peterson MD [place] [address] : 1940 AGE: 77 SEX: F LOC: UNK PHONE #: [phone] EXAM DATE: 10/06/2018 STATUS: [facility] FAX #: [phone] RAD #: D/C DT PAGE 5 Signed Report Patient Name: STEWART HUGHES Unit No: [id number] Report Has Been Amended EXAMS: CPT CODE: [id number] XR FLUORO FOR SPINE INJ 55778 <Continued> Orig Print D/T: S: 10/06/2018 (9696) [facility] NAME: STEWART HUGHES [address] [place] [address] PHYS: Rashel Anderson MD [place], [place] [address] : 1940 AGE: 77 SEX: F LOC: UNK PHONE #: [phone] EXAM DATE: 10/06/2018 STATUS: [facility] FAX #: [phone] RAD #: D/C DT PAGE 6 Signed Report - XR FLUORO FOR 2019-01-14 Patient Name: SPINE INJ 15:51:00 STEWART HUGHES Unit No: [id number] Report Has Been Amended EXAMS: CPT CODE: [id number] XR FLUORO FOR SPINE INJ 95187 Addendum - 01/14/2019 SIGNED 01/14/2019 ADDENDUM: [id number] RAD/FLLOCSPI LUMBAR FACET INJECTION REFERRING PHYSICIAN: PREOPERATIVE [...] taken to the PACU in good condition. [facility] NAME: STEWART HUGHES [address] [facility] PHYS: DANNY - Rashel Peterson MD [place], [place] [address] : 1940 AGE: 77 SEX: F LOC: UNK PHONE #: [phone] EXAM DATE: 10/06/2018 STATUS: [facility] FAX #: [phone] RAD #: D/C DT PAGE 1 Signed Report (CONTINUED) Patient Name: STEWART HUGHES Unit No: [id number] Report Has Been Amended EXAMS: CPT CODE: [id number] XR FLUORO FOR SPINE INJ 28972 <Continued> at 1551 Reported and signed by: Rashel Peterson M.D. Report LUMBAR TRANSFORAMINAL INJECTION REFERRING PHYSICIAN: PREOPERATIVE DIAGNOSIS: Degenerative Lumbar Disc Disease. POSTOPERATIVE DIAGNOSIS: Lumbar radiculopathy PROCEDURES PERFORMED 1. Fluoroscopically guided needle localization of the right L4, right L5, right S1 spinal nerve/nerves with transforaminal epidural steroid injection/injections. 2. Transforaminal epidurogram/epidurogram s at right L4, right L5, right S1. [...] subsequent level was done using the same [facility] NAME: STEWART HUGHES [address] [facility] PHYS: HIPOLITOUD - Rashel Peterson MD [place], [place] [address] : 1940 AGE: 77 SEX: F LOC: [facility] PHONE #: [phone] EXAM DATE: 10/06/2018 STATUS: [facility] FAX #: [phone] RAD #: D/C DT PAGE 2 Signed Report (CONTINUED) Patient Name: STEWART HUGHES Unit No: [id number] Report Has Been Amended EXAMS: CPT CODE: [id number] XR FLUORO FOR SPINE INJ 61281 <Continued> technique and medications. The patient's vital signs remained stable. The patient was taken to the PACU in good condition. at 1321 Reported and signed by: Rashel Peterson M.D. CC: Hernán Fried MD; Rashel Peterson MD Technologist: BABAK PABON RT(R) Transcribed D/ (3374) Michelle [facility] NAME: STEWART HUGHES [address] [facility] PHYS: Rashel Anderson MD [place] [address] : 1940 AGE: 77 SEX: F LOC: UNK PHONE #: [phone] EXAM DATE: 10/06/2018 STATUS: [facility] FAX #: [phone] RAD #: D/C DT PAGE 3 Signed Report Patient Name: STEWART HUGHES Unit No: [id number] Report Has Been Amended EXAMS: CPT CODE: [id number] XR FLUORO FOR SPINE INJ 24587 <Continued> Orig Print D/T: S: 10/06/2018 (0201) [facility] NAME: STEWART HUGHES [address] [facility] PHYS: Rashel Anderson MD [place] [address] : 1940 AGE: 77 SEX: F LOC: UNK PHONE #: [phone] EXAM DATE: 10/06/2018 STATUS: [facility] FAX #: [phone] RAD #: D/C DT PAGE 4 Signed Report - XR FLUORO FOR 2018-10-06 Patient Name: SPINE INJ 13:21:00 STEWART HUGHES Unit No: [id number] EXAMS: CPT CODE: [id number] XR FLUORO FOR SPINE INJ 91564 LUMBAR TRANSFORAMINAL INJECTION REFERRING PHYSICIAN: PREOPERATIVE DIAGNOSIS: Degenerative Lumbar Disc Disease. POSTOPERATIVE DIAGNOSIS: Lumbar radiculopathy PROCEDURES PERFORMED 1. Fluoroscopically guided needle localization of the right L4, right L5, right S1 spinal nerve/nerves with transforaminal epidural steroid injection/injections. 2. Transforaminal epidurogram/epidurogram s at right L4, right L5, right S1. [...] Reported and signed by: Rashel Peterson M.D. [facility] NAME: STEWART HUGHESON [address] [facility] PHYS: Rashel Anderson MD [place], [place] [address] : 1940 AGE: 77 SEX: F LOC: EDDY PHONE #: [phone] EXAM DATE: 10/06/2018 STATUS: [facility] FAX #: [phone] RAD #: D/C DT PAGE 1 Signed Report (CONTINUED) Patient Name: STEWART HUGHES Unit No: [id number] EXAMS: CPT CODE: [id number] XR FLUORO FOR SPINE INJ 93736 <Continued> CC: Hernán Fried MD; Rashel Peterson MD Technologist: BABAK PABON RT(R) Transcribed D/ (1321) MaggiD [facility] NAME: STEWART HUGHES [address] [facility] PHYS: Rashel Anderson MD [place], [place] [address] : 1940 AGE: 77 SEX: F LOC: EDDY PHONE #: [phone] EXAM DATE: 10/06/2018 STATUS: REG [facility] FAX #: [phone] RAD #: D/C DT PAGE 2 Signed Report Patient Name: STEWART HUGHES Unit No: [id number] EXAMS: CPT CODE: [id number] XR FLUORO FOR SPINE INJ 27900 <Continued> Orig Print D/T: S: 10/06/2018 (1324) [facility] NAME: STEWART HUGHES [address] [facility] PHYS: Rashel Anderson MD [place], [place] [address] : 1940 AGE: 77 SEX: F LOC: EDDY PHONE #: [phone] EXAM DATE: 10/06/2018 STATUS: REG [facility] FAX #: [phone] RAD #: D/C DT PAGE 3 Signed Report GLUBED 2018-10-06 12:20:00 Test Item Value Reference Range Interpretation Comme nts GLUBED (test code = GLUBED) 111 mg/dL 60-125 N [id number] 10:17:00 Test Item Value Reference Range Interpretation Comments GLUBED (test code = GLUBED) 129 mg/dL 60-125 H - XR FLUORO FOR SPINE [id number] 12:21:00 Patient Name: STEWART HUGHES Unit No: [id number] EXAMS: CPT CODE: [id number] XR FLUORO FOR SPINE INJ 75577 LUMBAR TRANSFORAMINAL INJECTION REFERRING PHYSICIAN:Deng Grover M.D. [...] Reported and signed by: Rashel Peterson M.D. [facility] [place] [facility] NAME: STEWART HUGEHS [address] [facility] PHYS: DOCUD - Rashel Peterson MD [place], [place] [address] : 1940 AGE: 77 SEX: F LOC: EDDY PHONE #: [phone] EXAM DATE: 06/04/2018 STATUS: REG [facility] FAX #: [phone] RAD #: D/C DT PAGE 1 Signed Report (CONTINUED) Patient Name: STEWART HUGHES Unit No: [id number] EXAMS: CPT CODE: [id number] XR FLUORO FOR SPINE INJ 80253 <Continued> CC: Hernán Fried MD; Deng Grover MD Technologist: Kim Zepeda(R) Transcribed D/ (1221) t.SDR.UVD [facility] [place] [facility] NAME: STEWART HUGHES [address] [facility] PHYS: DANNY - Rashel Peterson MD [place], [place] [address] : 1940 AGE: 77 SEX: F LOC: EDDY PHONE #: [phone] EXAM DATE: 06/04/2018 STATUS: REG [facility] FAX #: [phone] RAD #: D/C DT PAGE 2 Signed Report Patient Name: STEWART HUGHES Unit No: [id number] EXAMS: CPTCODE: [id number] XR FLUORO FOR SPINE INJ 79333 <Continued> Orig Print D/T: S: 06/04/2018 (1225) [facility] NAME: STEWART HUGHES [address] [facility] PHYS: DANNY - Rashel Peterson MD [place], [place] [address] : 1940 AGE: 77 SEX: F LOC: EDDY PHONE #: [phone] EXAM DATE: 06/04/2018 STATUS: REG [facility] FAX #: [phone] RAD #: D/C DT PAGE 3 Signed Report [id number] 11:49:00 Test Item Value Reference Range Interpretation Comments GLUBED (test code = GLUBED) 117 mg/dL 60-125 N [id number] 10:36:00 Test Item Value Reference Range Interpretation Comments GLUBED (test code = GLUBED) 115 mg/dL 60-125 N
[2020-05-12] MEDS ORDERED: MAGNESIUM CITRATE 300 ML BOT ONE (22:56)
--- NOTE | 2020-05-13 00:21 | ER ---
Nurse's Notes [facility] Name: Naila Dunbar Age: 79 yrs Sex: Female : 1940 Arrival Date: 05/12/2020 Time: 20:23 Bed 3 Private MD: Diagnosis: Constipation Presentation: 05/12 20:27 Chief complaint: Patient states: Last BM was Saturday05/08/2020. Since then hasn't had a ca1 good BM. I've done 3 laxatives, Miralax and a Fleet enema, no relief. The fluid from the Enema is still in me. Pt appears uncomfortable in triage. Coronavirus screen: Client denies travel out of the [place] in the last 14 days. At this time, the client does not indicate any symptoms associated with coronavirus-19. Ebola Screen: Patient negative for fever greater than or equal to 101.5 degrees Fahrenheit, and additional compatible Ebola Virus Disease symptoms Patient denies exposure to infectious person. Patient denies travel to an Ebola-affected area in the 21 days before illness onset. No symptoms or risks identified at this time. Initial Sepsis Screen: Does the patient meet any 2 criteria? No. Patient's initial sepsis screen is negative. Does the patient have a suspected source of infection? No. Patient's initial sepsis screen is negative. Risk Assessment: Do you want to hurt yourself or someone else? Patient reports no desire to harm self or others. Onset of symptoms was May 12, 2020. 20:27 Method Of Arrival: Ambulatory ca1 20:27 Acuity: NYLA 3 ca1 Historical: - Allergies: 20:32 No Known Allergies; ca1 - PMHx: 20:32 Diabetes - NIDDM; Hypertension; ca1 - PSHx: 20:32 back surgery; Cholecystectomy; left rotator cuff repair; ca1 - Immunization history:: Pneumococcal vaccine is up to date, Flu vaccine is up to date. - Social history:: Smoking status: Patient denies any tobacco usage or history of. Screenin:00 Abuse screen: Denies threats or abuse. Nutritional screening: No deficits noted. ea Tuberculosis screening: No symptoms or risk factors identified. Fall Risk None identified. Assessment: 23:00 General: Appears in no apparent distress. Behavior is appropriate for age. Pain: Denies ea pain. Neuro: Level of Consciousness is awake, alert, obeys commands, Oriented to person, place, time. Cardiovascular: Patient's skin is warm and dry. Respiratory: Airway is patent Respiratory effort is even, unlabored, Respiratory pattern is regular, symmetrical. GI: Abdomen is non-distended, Reports constipation. Derm: Skin is pink, warm \T\ dry. 05/13 00:00 Reassessment: Pt had large bowel movement, reports she feels better. ea 00:28 Reassessment: Patient and/or family updated on plan of care and expected duration. Pain ea level reassessed. Patient is alert, oriented x 3, equal unlabored respirations, skin warm/dry/pink. Discharge instruction given to patient verbalized the understanding of instruction, pt left ED ambulatory tolerating well. Vital Signs: 05/12 20:27 BP 132 / 83; Pulse 100; Resp 16 S; Temp 98.1(TE); Pulse Ox 95% on R/A; Weight 84.82 kg ca1 (R); Height 5 ft. 6 in. (167.64 cm) (R); Pain 5/10; 23:41 BP 126 / 76; Pulse 90; Resp 16; Pulse Ox 97% ; ea 20:27 Body Mass Index 30.18 (84.82 kg, 167.64 cm) ca1 ED Course: 20:23 Patient arrived in ED. ag3 20:31 Triage completed. ca1 20:32 Arm band placed on right wrist. ca1 22:35 William Garcia PA is PHCP. jmm 22:35 Wes Coles MD is Attending Physician. jmaleena 22:43 Cecile Perez, ANDREW is Primary Nurse. ea 22:59 CT Stone Protocol In Process Unspecified. EDMS 23:00 Patient has correct armband on for positive identification. Bed in low position. Call ea light in reach. Side rails up X2. 05/13 00:28 No provider procedures requiring assistance completed. Patient did not have IV access ea during this emergency room visit. Administered Medications: 05/12 22:59 Drug: Magnesium Citrate Liquid 300 ml Route: PO; ea Outcome: 05/13 00:20 Discharge ordered by . aracelis 00:28 Discharged to home ambulatory. ea 00:28 Condition: stable 00:28 Discharge instructions given to patient, Instructed on discharge instructions, follow up and referral plans. Demonstrated understanding of instructions, follow-up care. 00:45 Patient left the ED. dm5 Signatures: Dispatcher [employer] Jennifer Calderon, RN RN dm5 William Garcia PA PA jmm Antunez, Elena, RN RN Alicia Ledbetter3 Alla Woodson RN RN ca1 Corrections: (The following items were deleted from the chart) 05/12 20:31 20:27 BP 132 / 83; Pulse 100bpm; Resp 16bpm; Spontaneous; Pulse Ox 95% RA; Temp 98.1F ca1 Temporal; 84.82 kg Reported; Height 5 ft. 6 in. Reported; BMI: 30.1; Pain 10/10; ca1
--- NOTE | 2020-05-13 00:21 | EDPHYS ---
Physician Documentation [facility] Name: Naila Dunbar Age: 79 yrs Sex: Female : 1940 Arrival Date: 05/12/2020 Time: 20:23 Bed 3 Private MD: ED Physician Wes Coles HPI: 05/12 23:24 This 79 yrs old Female presents to ER via Ambulatory with complaints of jmm Constipation. 23:24 The patient presents with abdominal pain. Onset: The symptoms/episode began/occurred jmm gradually, 4 day(s) ago. The symptoms do not radiate. Associated signs and symptoms: Pertinent positives: constipation, Pertinent negatives: fever. This is a 79 year old female with a history of DM, HTN that presents to the ED with complaints of constipation, rectal fullness. Unable to have a full BM for 4 days. Denies fever, denies vomiting. . Historical: - Allergies: 20:32 No Known Allergies; ca1 - PMHx: 20:32 Diabetes - NIDDM; Hypertension; ca1 - PSHx: 20:32 back surgery; Cholecystectomy; left rotator cuff repair; ca1 - Immunization history:: Pneumococcal vaccine is up to date, Flu vaccine is up to date. - Social history:: Smoking status: Patient denies any tobacco usage or history of. ROS: 23:24 Constitutional: Negative for fever, chills, and weight loss, Cardiovascular: Negative jmm for chest pain, palpitations, and edema, Respiratory: Negative for shortness of breath, cough, wheezing, and pleuritic chest pain. 23:24 Abdomen/GI: Positive for constipation. 23:24 All other systems are negative. Exam: 23:24 Constitutional: This is a well developed, well nourished patient who is awake, alert, jmm and in no acute distress. Head/Face: atraumatic. Eyes: EOMI, no conjunctival erythema appreciated ENT: Moist Mucus Membranes Neck: Trachea midline, Supple Chest/axilla: Normal chest wall appearance and motion. Cardiovascular: Regular rate and rhythm. No edema appreciated Respiratory: Normal respirations, no respiratory distress appreciated Abdomen/GI: Non distended, soft Back: Normal ROM Skin: General appearance color normal MS/ Extremity: Moves all extremities, no obvious deformities appreciated, no edema noted to the lower extremities Neuro: Awake and alert, normal gait Psych: Behavior is normal, Mood is normal, Patient is cooperative and pleasant Vital Signs: 20:27 BP 132 / 83; Pulse 100; Resp 16 S; Temp 98.1(TE); Pulse Ox 95% on R/A; Weight 84.82 kg ca1 (R); Height 5 ft. 6 in. (167.64 cm) (R); Pain 5/10; 23:41 BP 126 / 76; Pulse 90; Resp 16; Pulse Ox 97% ; ea 20:27 Body Mass Index 30.18 (84.82 kg, 167.64 cm) ca1 MDM: 22:38 Patient medically screened. [facility] 05/13 00:19 Data reviewed: vital signs, nurses notes. Counseling: I had a detailed discussion with [facility] the patient and/or guardian regarding: the historical points, exam findings, and any diagnostic results supporting the discharge/admit diagnosis, radiology results, the need for outpatient follow up, to return to the emergency department if symptoms worsen or persist or if there are any questions or concerns that arise at home. ED course: Patient able to have a large bowel movement in the ED. States pressure is relieved. I discussed the CT findings with the patient along with strict return precautions. Patient understood and agrees with the plan of care. . 05/12 22:36 Order name: CT Stone Protocol [facility] 05/12 22:38 Order name: Sage patient; Complete Time: 22:59 [facility] Administered Medications: 05/12 22:59 Drug: Magnesium Citrate Liquid 300 ml Route: PO; ea Disposition: 05/13 01:51 Co-signature as Attending Physician, Wes Coles MD. rn Disposition: 05/13/20 00:20 Discharged to Home. Impression: Constipation. - Condition is Stable. - Discharge Instructions: Constipation, Adult. - Medication Reconciliation Form, Thank You Letter, Antibiotic Education, Prescription Opioid Use form. - Follow up: Private Physician; When: 2 - 3 days; Reason: Recheck today's complaints, Continuance of care, Re-evaluation by your physician. Signatures: Dispatcher [employer] Jennifer Calderon, RN RN dm5 William Garcia PA PA [facility] Wes Coles MD MD rn Antunez, Elena, RN RN ea Acob, Cheryl, RN RN ca1 Corrections: (The following items were deleted from the chart) 00:45 00:20 05/13/2020 00:20 Discharged to Home. Impression: Constipation. Condition is dm5 Stable. Forms are Medication Reconciliation Form, Thank You Letter, Antibiotic Education, Prescription Opioid Use. Follow up: Private Physician; When: 2 - 3 days; Reason: Recheck today's complaints, Continuance of care, Re-evaluation by your physician. [email or web address]
[2020-05-13 01:18] VITALS: TEMP 98.1
[2020-05-13 01:20] VITALS: BP 126/76; O2SAT 97
--- NOTE | 2020-05-13 09:53 | RAD REPORT ---
EXAM DESCRIPTION: CT - Stone Protocol - 05/13/2020 12:46 am CLINICAL HISTORY: Constipation, r/o obstruction TECHNIQUE: Contiguous axial images obtained through the abdomen and pelvis without IV contrast. Dilan nal and sagittal reformatted images were provided. This exam was performed according to our departmental dose-optimization program, which includes autom ated exposure control, adjustment of the mA and/or kV according to patient size and/or use of iterati ve reconstruction technique. COMPARISON: None available for comparison. FINDINGS: Lung bases: 1.9 cm linear metallic density along the medial aspect of the right lower lobe . Liver: Grossly unremarkable Gallbladder and biliary system: Prior cholecystectomy. Pancreas: Moderate fatty replacement of the pancreatic parenchyma. Spleen: Grossly unremarkable Adrenals: Unremarkable Kidneys: Bilateral parapelvic cysts. 2 cm cortical cyst at the anterior lower pole on the right. 4 x 2.7 x 3.5 cm exophytic lesion with macroscopic fat and soft tissue density at the posterior upper jeison e on the right most compatible with an angiomyolipoma. No calculi. No hydronephrosis. Bowel: Air-fluid levels within the proximal to mid large bowel. Fecal loading in the rectal vault. Mi ld rectal wall thickening with minimal presacral and perirectal edema. Colonic diverticula without ad jacent inflammatory change. No obstruction. No appreciable mucosal thickening. Appendix: Normal caliber appendix. No findings to suggest acute appendicitis. Urinary bladder: Unremarkable Reproductive: Unremarkable as visualized Lymph nodes: No pathologically enlarged lymph nodes. Peritoneum: No focal fluid collection. No free air. Vessels: Mild to moderate atherosclerotic disease. No abdominal aortic aneurysm. Abdominal wall: Small fat-containing umbilical and bilateral inguinal hernias. Bones: Multilevel spondylosis. Prior bilateral posterior fusion at L4-L5. Prior posterior decompressi on at its L3-L5. IMPRESSION: 1. Nonspecific air-fluid levels present within the large bowel. This can be seen in th e clinical setting of diarrhea. No bowel obstruction. 2. Mild rectal wall thickening with minimal presacral and perirectal edema. This may in part be rel ated to degree of distention. Please correlate clinically for stercoral colitis. 3. Other findings as above. Electronically signed by: Maxwell Walsh MD 05/12/2020 11:16 PM DESIGN VERIFICATION ENGINEER Due to temporary technical issues with the PACS/Fluency reporting system, reports are being signed by the in house radiologist without review as a courtesy to ensure prompt reporting. The interpreting r adiologist is fully responsible for the content of the report.
== END 2020-05-13 00:45 | disposition home or self-care (01) ==
LOC: ER 20:20
DX: K59.00 Constipation, unspecified (principal)
CPT/HCPCS: 74176; 76377; 99283

== ENCOUNTER 2021-06-07 09:41 | Emergency (ER) | payer OTHER, MEDICARE ==
--- OUTSIDE RECORDS SUMMARY | 2021-06-07 09:43 | XMS REPORT | Continuity of Care Document ---
:1940 Author Organization [facility] t Address [address] [place] [address] Care Team Providers Name Role Phone Unavailable Unavailable Unavailable Payers Payer Name Policy Type Policy Number Effective Date Expiration Date S ource Problems This patient has no known problems. Allergies, Adverse Reactions, Alerts Allergy Allergy Status Severity Reaction(s) Onset Inactive Treating Comm ents Source Name Type Date Date Clinician No Known DA Active U [facility] All[facility]ie 2-19 [place] [facility] Medications This patient has no known medications. Procedures This patient has no known procedures. Results Test Description Test Time Test Comments Results Result [facility] e Comments - XR FLUORO FOR 2019-02-13 Patient Name: SPINE INJ 16:12:00 STEWART HUGHES Unit No: [id number] Report Has Been Amended EXAMS: CPT CODE: [id number] XR FLUORO FOR SPINE INJ 64287 Addendum - 02/13/2019 SIGNED 02/13/2019 ADDENDUM: [id number] RAD/FLLOCSPI LUMBAR TRANSFORAMINAL INJECTION REFERRING PHYSICIAN: PREOPERATIVE [...] on 01/14/2019 3:51:27 PM by Rashel Peterson. [facility] NAME: STEWART HUGHES [address] [facility] PHYS: DOCUD - Rashel Peterson MD [place], [place] [address] : 1940 AGE: 77 SEX: F LOC: UNK PHONE #: [phone] EXAM DATE: 10/06/2018 STATUS: [facility] FAX #: [phone] RAD #: D/C DT PAGE 1 Signed Report (CONTINUED) Patient Name: STEWART HUGHES Unit No: [id number] Report Has Been Amended EXAMS: CPT CODE: [id number] XR FLUORO FOR SPINE INJ 78950 <Continued> LUMBAR FACET INJECTION REFERRING PHYSICIAN: PREOPERATIVE [...] taken to the PACU in good condition. [facility] NAME: STEWART HUGHES [address] [facility] PHYS: DANNY - Rashel Peterson MD [place], [place] [address] : 1940 AGE: 77 SEX: F LOC: K PHONE #: [phone] EXAM DATE: 10/06/2018 STATUS: [facility] FAX #: [phone] RAD #: D/C DT PAGE 2 Signed Report (CONTINUED) Patient Name: STEWART HUGHES Unit No: [id number] Report Has Been Amended EXAMS: CPT CODE: [id number] XR FLUORO FOR SPINE INJ 13808 <Continued> at 1612 Reported and signed by: Rashel Peterson M.D. Addendum - 01/14/2019 SIGNED 01/14/2019 ADDENDUM: [id number] RAD/FLLOCSPI LUMBAR FACET INJECTION REFERRING PHYSICIAN: PREOPERATIVE [...] 10 mg of triamcinolone was injected incrementally [facility] NAME: STEWART HUGHES [address] [facility] PHYS: DOCUD - DoctorRashel MD [place], [place] [address] : 1940 AGE: 77 SEX: F LOC: UNK PHONE #: [phone] EXAM DATE: 10/06/2018 STATUS: [facility] FAX #: [phone] RAD #: D/C DT PAGE 3 Signed Report (CONTINUED) Patient Name: STEWART HUGHES Unit No: [id number] Report Has Been Amended EXAMS: CPT CODE: [id number] XR FLUORO FOR SPINE INJ 08280 <Continued> with frequent negative aspirations. There were [...] Then, 1 ml of Isovue-300 contrast was [facility] NAME: STEWART HUGHES [address] [facility] PHYS: DOCUD - Doctor,Rashel Dennison MD [place], [place] [address] : 1940 AGE: 77 SEX: F LOC: UNK PHONE #: [phone] EXAM DATE: 10/06/2018 STATUS: [facility] FAX #: [phone] RAD #: D/C DT PAGE 4 Signed Report (CONTINUED) Patient Name: STEWART HUGHES Unit No: [id number] Report Has Been Amended EXAMS: CPT CODE: [id number] XR FLUORO FOR SPINE INJ 68677 <Continued> injected to produce the epidurograms. No [...] MD Technologist: BABAK PABON RT(R) Transcribed D/ (7211) Michelle [facility] NAME: STEWART HUGHES [address] [place] [address] PHYS: Rashel Anderson MD [place] [address] : 1940 AGE: 77 SEX: F LOC: UNK PHONE #: [phone] EXAM DATE: 10/06/2018 STATUS: [facility] FAX #: [phone] RAD #: D/C DT PAGE 5 Signed Report Patient Name: STEWART HUGHES Unit No: [id number] Report Has Been Amended EXAMS: CPT CODE: [id number] XR FLUORO FOR SPINE INJ 26292 <Continued> Orig Print D/T: S: 10/06/2018 (9884) [facility] NAME: STEWART HUGHES [address] [place] [address] PHYS: Rashel Anderson MD [place] [address] : 1940 AGE: 77 SEX: F LOC: UNK PHONE #: [phone] EXAM DATE: 10/06/2018 STATUS: [facility] FAX #: [phone] RAD #: D/C DT PAGE 6 Signed Report - XR FLUORO FOR 2019-01-14 Patient Name: SPINE INJ 15:51:00 STEWART HUGHES Unit No: [id number] Report Has Been Amended EXAMS: CPT CODE: [id number] XR FLUORO FOR SPINE INJ 81157 Addendum - 01/14/2019 SIGNED 01/14/2019 ADDENDUM: [id number] RAD/FLLOCSPI LUMBAR FACET INJECTION REFERRING PHYSICIAN: PREOPERATIVE [...] taken to the PACU in good condition. [facility] NAME: STEWART HUGHES [address] [facility] PHYS: DOCUD - Doctor,Rashel Dennison MD [place], [place] [address] : 1940 AGE: 77 SEX: F LOC: [facility] PHONE #: [phone] EXAM DATE: 10/06/2018 STATUS: [facility] FAX #: [phone] RAD #: D/C DT PAGE 1 Signed Report (CONTINUED) Patient Name: STEWART HUGHES Unit No: [id number] Report Has Been Amended EXAMS: CPT CODE: [id number] XR FLUORO FOR SPINE INJ 87674 <Continued> at 1551 Reported and signed by: [...] subsequent level was done using the same [facility] NAME: STEWART HUGHES [address] [facility] PHYS: DOCUD - Rashel Peterson MD [place], [place] [address] : 1940 AGE: 77 SEX: F LOC: UNK PHONE #: [phone] EXAM DATE: 10/06/2018 STATUS: [facility] FAX #: [phone] RAD #: D/C DT PAGE 2 Signed Report (CONTINUED) Patient Name: STEWART HUGHES Unit No: [id number] Report Has Been Amended EXAMS: CPT CODE: [id number] XR FLUORO FOR SPINE INJ 56257 <Continued> technique and medications. The patient's vital signs remained stable. The patient was taken to the PACU in good condition. at 1321 Reported and signed by: Rashel Peterson M.D. CC: Hernán Fried MD; Rashel Peterson MD Technologist: BABAK PABON RT(R) Transcribed D/ (6478) Michelle [facility] NAME: STEWART HUGHES [address] [facility] PHYS: DANNY - Rashel Peterson MD [place], [place] [address] : 1940 AGE: 77 SEX: F LOC: UNK PHONE #: [phone] EXAM DATE: 10/06/2018 STATUS: [facility] FAX #: [phone] RAD #: D/C DT PAGE 3 Signed Report Patient Name: STEWART HUGHES Unit No: [id number] Report Has Been Amended EXAMS: CPT CODE: [id number] XR FLUORO FOR SPINE INJ 85274 <Continued> Orig Print D/T: S: 10/06/2018 (0914) [facility] NAME: STEWART HUGHES [address] [facility] PHYS: DANNY - Rashel Peterson MD [place], [place] [address] : 1940 AGE: 77 SEX: F LOC: UNK PHONE #: [phone] EXAM DATE: 10/06/2018 STATUS: [facility] FAX #: [phone] RAD #: D/C DT PAGE 4 Signed Report - XR FLUORO FOR 2018-10-06 Patient Name: SPINE INJ 13:21:00 STEWART HUGHES Unit No: [id number] EXAMS: CPT CODE: [id number] XR FLUORO FOR SPINE INJ 46732 LUMBAR TRANSFORAMINAL INJECTION REFERRING PHYSICIAN: PREOPERATIVE DIAGNOSIS: [...] Reported and signed by: Rashel Peterson M.D. [facility] NAME: STEWART HUGHES [address] [facility] PHYS: DOCUD - Rashel Peterson MD [place], [place] [address] : 1940 AGE: 77 SEX: F LOC: EDDY PHONE #: [phone] EXAM DATE: 10/06/2018 STATUS: [facility] [employer] FAX #: [phone] RAD #: D/C DT PAGE 1 Signed Report (CONTINUED) Patient Name: STEWART HUGHES Unit No: [id number] EXAMS: CPT CODE: [id number] XR FLUORO FOR SPINE INJ 06708 <Continued> CC: Hernán Fried MD; Rashel Peterson MD Technologist: BABAK PABON RT(R) Transcribed D/ (5941) [facility] NAME: STEWART HUGHES [address] [facility] PHYS: Rashel Anderson MD [place] [address] : 1940 AGE: 77 SEX: F LOC: EDDY PHONE #: [phone] EXAM DATE: 10/06/2018 STATUS: [facility] [employer] FAX #: [phone] RAD #: D/C DT PAGE 2 Signed Report Patient Name: STEWART HUGHES Unit No: [id number] EXAMS: CPT CODE: [id number] XR FLUORO FOR SPINE INJ 30988 <Continued> Orig Print D/T: S: 10/06/2018 (1324) [facility] NAME: STEWART HUGHES [address] [facility] PHYS: Rashel Anderson MD [place] [address] : 1940 AGE: 77 SEX: F LOC: EDDY PHONE #: [phone] EXAM DATE: 10/06/2018 STATUS: [facility] [employer] FAX #: [phone] RAD #: D/C DT PAGE 3 Signed Report GLUBED 2018-10-06 12:20:00 Test Item Value Reference Range Interpretation Comme nts GLUBED (test code = GLUBED) 111 mg/dL 60-125 N [id number] 10:17:00 Test Item Value Reference Range Interpretation Comments GLUBED (test code = GLUBED) 129 mg/dL 60-125 H - XR FLUORO FOR SPINE [id number] 12:21:00 Patient Name: STEWART HUGHES Unit No: [id number] EXAMS: CPT CODE: [id number] XR FLUORO FOR SPINE INJ 87672 LUMBAR TRANSFORAMINAL INJECTION REFERRING PHYSICIAN:Deng Grover M.D. [...] Reported and signed by: Rashel Peterson M.D. [facility] NAME: STEWART HUGHES [address] PHYS: Rashle Anderson MD [place] [address] : 1940 AGE: 77 SEX: F LOC: EDDY PHONE #: [phone] EXAM DATE: 06/04/2018 STATUS: [facility] FAX #: [phone] RAD #: D/C DT PAGE 1 Signed Report (CONTINUED) Patient Name: STEWART HUGHES Unit No: [id number] EXAMS: CPT CODE: [id number] XR FLUORO FOR SPINE INJ 93101 <Continued> CC: Hernán Fried MD; Deng Grover MD Technologist: Kim Zepeda(R) Transcribed D/ (1221) Michelle [facility] NAME: HUGHESSTEWART [address] [facility] PHYS: Rashel Anderson MD [place] [address] : 1940 AGE: 77 SEX: F LOC: EDDY PHONE #: [phone] EXAM DATE: 06/04/2018 STATUS: [facility] [employer] FAX #: [phone] RAD #: D/C DT PAGE 2 Signed Report Patient Name: STEWART HUGHES Unit No: [id number] EXAMS: CPTCODE: [id number] XR FLUORO FOR SPINE INJ 17375 <Continued> Orig Print D/T: S: 06/04/2018 (1225) [facility] NAME: MARCO A HUGHESE [address] [facility] PHYS: Rashel Anderson MD [place] [address] : 1940 AGE: 77 SEX: F LOC: EDDY PHONE #: [phone] EXAM DATE: 06/04/2018 STATUS: [facility] FAX #: [phone] RAD #: D/C DT PAGE 3 Signed Report [id number] 11:49:00 Test Item Value Reference Range Interpretation Comments GLUBED (test code = GLUBED) 117 mg/dL 60-125 N [id number] 10:36:00 Test Item Value Reference Range Interpretation Comments GLUBED (test code = GLUBED) 115 mg/dL 60-125 N
--- NOTE | 2021-06-07 10:56 | RAD REPORT ---
EXAM DESCRIPTION: CT - CTHCSPWOC - 06/07/2021 10:47 am CLINICAL HISTORY: PAINfall, head and neck injury COMPARISON: No comparisons TECHNIQUE: Axial 5 mm thick images of the head were obtained. Axial 2 mm thick images of the cervic al spine were obtained with sagittal and coronal reconstruction images generated and reviewed. All CT scans are performed using dose optimization technique as appropriate and may include automated exposure control or mA/KV adjustment according to patient size. FINDINGS: No intracranial hemorrhage, mass, edema or acute intracranial finding. No acute cortical i nfarction. No cortical edema or sulcal effacement. Moderate atrophy changes are present with ventricl es in proportion. Mild to moderate chronic ischemic change in the cerebral white matter. No extra-axi al fluid collections. Mastoid air cells and paranasal sinuses are clear. No globe or orbit abnormalit y seen. Laceration bilateral right-side scalp evident. No foreign body. No measurable scalp hematoma. Cervical bodies are normal in height. There is straightening of the usual cervical lordosis. No sublu xation abnormalities present. Multilevel facet joint degenerative changes are present. Significant un covertebral joint hypertrophy seen at multiple levels. There is significant bilateral foraminal steno sis at C3-4 with cord flattening and central spinal stenosis as well. All disc levels from C3-C7 show loss in height. Significant bilateral foraminal stenosis and central spinal stenosis at C4-5 and sli ghtly lesser in degree at C5-6. No fracture or acute bony abnormality. No pathologic bone process. Ce ntral canal detail is inherently limited. No paraspinal mass or hematoma. IMPRESSION: Atrophy and chronic ischemic changes are present but no acute intracranial finding ident ifiable. Advanced cervical spine degenerative changes are present as detailed with multilevel spinal stenosis and foraminal stenosis. No acute findings seen.
--- NOTE | 2021-06-07 11:33 | RAD REPORT ---
EXAM DESCRIPTION: RAD - Hip Right 2 View - 06/07/2021 11:08 am CLINICAL HISTORY: PAINfollowing fall COMPARISON: No comparisons FINDINGS: AP and frog-leg views of the right hip were obtained. There is no fracture or dislocation. No AVN or focal head abnormality. Medial joint space is narrowed . Degenerative changes are present along the superior acetabular rim, relatively mild. Degenerative c hanges are seen from bony hypertrophy at the greater trochanter. Imaged portions of the right hemipel vis are intact. No suspicious soft tissue finding. IMPRESSION: Negative right hip examination for acute or significant findings. Hip joint degenerative changes are present relatively mild for age.
--- NOTE | 2021-06-07 11:34 | RAD REPORT ---
EXAM DESCRIPTION: RAD - Humerus Right - 06/07/2021 11:08 am CLINICAL HISTORY: PAINfollowing fall COMPARISON: No comparisons FINDINGS: No fracture or dislocation of the proximal humerus. Acromial humeral joint space is efface d. Spurring is seen along the inferior margin of the AC joint. No AC joint separation or fracture of the lateral clavicle. The narrowed acromial humeral joint space could indicate chronic rotator cuff t ear. No foreign body or other soft tissue abnormality. IMPRESSION: No fracture or acute finding identifiable. Degenerative shoulder joint changes with suspected chronic rotator cuff tear.
--- NOTE | 2021-06-07 11:44 | RAD REPORT ---
EXAM DESCRIPTION: RAD - Forearm Right - 06/07/2021 11:09 am CLINICAL HISTORY: PAIN, fall with arm pain COMPARISON: No comparisonsNone. FINDINGS: No fracture is identified. There is no dislocation or periosteal reaction noted. Degenerative change present at the trapezial first metacarpal articulation. Mild degenerative changes seen along the radiocarpal joint space. No measurable soft tissue hematoma or contusion. No foreign body. IMPRESSION: Negative right former examination for acute finding.
--- NOTE | 2021-06-07 12:17 | EDPHYS ---
Physician Documentation [facility] Name: Naila Dunbar Age: 80 yrs Sex: Female : 1940 Arrival Date: 06/07/2021 Time: 09:43 Bed 4 Private MD: ED Physician Vance Celaya HPI: 06/07 11:40 This 80 yrs old Female presents to ER via Ambulatory with complaints of Fall Injury, kb Laceration To Head. 11:40 Details of fall: The patient fell from an upright position, while walking. Onset: The kb symptoms/episode began/occurred last night. Associated injuries: The patient sustained injury to the head, laceration, right hip and right arm, painful injury. Severity of symptoms: At their worst the symptoms were moderate, in the emergency department the symptoms are unchanged. The patient has not experienced similar symptoms in the past. The patient has not recently seen a physician. Pt reports she fell last night around 1929. Reports laceration to head and pain to right arm and hip. States she went to her hairdresser this morning and she recommended she come get checked out. Historical: - Allergies: 10:04 No Known Allergies; ap3 - PMHx: 10:04 Diabetes - NIDDM; Hypertension; ap3 - Immunization history:: Client reports receiving the 2nd dose of the Covid vaccine, Last tetanus immunization: unknown, Pneumococcal vaccine is up to date, Flu vaccine is up to date. - Social history:: Smoking status: Patient denies any tobacco usage or history of. Patient uses alcohol, on a daily basis. reports having wine nightly. ROS: 11:38 Constitutional: Negative for fever, chills, and weight loss. kb 11:38 MS/extremity: Positive for pain, of the right hip and right arm. 11:38 Skin: Positive for laceration(s), of the right temporal area. 11:38 All other systems are negative. Exam: 11:39 Constitutional: This is a well developed, well nourished patient who is awake, alert, kb and in no acute distress. ENT: Moist Mucous membranes Cardiovascular: Regular rate and rhythm with a normal S1 and S2. No gallops, murmurs, or rubs. No pulse deficits. Respiratory: Respirations even and unlabored. No increased work of breathing. Talking in full sentences Abdomen/GI: Soft, non-tender. No distention Neuro: Awake and alert, GCS 15, oriented to person, place, time, and situation. Moves all extremities. Normal gait. Psych: Awake, alert, with orientation to person, place and time. Behavior, mood, and affect are within normal limits. 11:39 Head/face: Noted is no obvious of injury or deformity except a laceration(s), that is superficial, 2 cm(s), of the right temporal area. 11:39 Musculoskeletal/extremity: Extremities: grossly normal except: noted in the right hip and right arm: pain, tenderness, ROM: intact in all extremities, Circulation is intact in all extremities. Sensation intact. Weight bearing: able to fully bear weight. 11:39 Skin: injury, laceration(s), the wound is approximately 2 cm(s), of the right temporal area, that can be described as clean, no foreign body, linear, without bleeding. Vital Signs: 10:01 BP 128 / 94; Pulse 74; Resp 19; Temp 98.1; Pulse Ox 98% ; Weight 85.28 kg; Height 5 ft. ap3 6 in. (167.64 cm); Pain 4/10; 12:05 BP 133 / 87; Pulse 74; Resp 17; Pulse Ox 99% on R/A; tw2 12:37 BP 112 / 51; Pulse 67; Resp 18; Pulse Ox 97% on R/A; ss7 10:01 Body Mass Index 30.34 (85.28 kg, 167.64 cm) ap3 Anh Coma Score: 10:07 Eye Response: spontaneous(4). Verbal Response: oriented(5). Motor Response: obeys ap3 commands(6). Total: 15. 12:05 Eye Response: spontaneous(4). Verbal Response: oriented(5). Motor Response: obeys tw2 commands(6). Total: 15. Trauma Score (Adult): 10:07 Eye Response: spontaneous(1); Verbal Response: oriented(1); Motor Response: obeys ap3 commands(2); Systolic BP: > 89 mm Hg(4); Respiratory Rate: 10 to 29 per min(4); [place] Score: 15; Trauma Score: 12 12:05 Eye Response: spontaneous(1); Verbal Response: oriented(1); Motor Response: obeys tw2 commands(2); Systolic BP: > 89 mm Hg(4); Respiratory Rate: 10 to 29 per min(4); [place] Score: 15; Trauma Score: 12 Laceration: 12:16 Wound Repair of 2cm ( 0.8in ) subcutaneous laceration to right temporal area. Linear kb shaped.. Distal neuro/vascular/tendon intact. Wound prep: Extensive cleansing with betadine by nurse, Wound irrigation with saline by nurse. Skin closed with 2 Janette using staple gun. Patient tolerated well. MDM: 10:18 Patient medically screened. kb 11:39 Data reviewed: vital signs, nurses notes. Data interpreted: Pulse oximetry: on room air kb is 98 %. Interpretation: normal. Counseling: I had a detailed discussion with the patient and/or guardian regarding: the historical points, exam findings, and any diagnostic results supporting the discharge/admit diagnosis, radiology results, the need for outpatient follow up, a family practitioner, to return to the emergency department if symptoms worsen or persist or if there are any questions or concerns that arise at home. 06/07 10:31 Order name: CT Head C Spine; Complete Time: 11:00 kb 06/07 10:31 Order name: Humerus Right XRAY; Complete Time: 11:36 kb 06/07 10:31 Order name: Wound Care; Complete Time: 11:31 kb 06/07 10:31 Order name: Forearm Right XRAY; Complete Time: 11:44 kb 06/07 10:31 Order name: Hip Right 2 View XRAY; Complete Time: 11:36 kb Administered Medications: No medications were administered Disposition Summary: 06/07/21 12:16 Discharge Ordered Location: Home kb Condition: Stable kb Diagnosis - Pain in right arm kb - Pain in right hip kb - Unspecified injury of head, initial encounter kb - Laceration without foreign body of scalp kb Followup: kb - With: Emergency Department - When: As needed - Reason: Worsening of condition Followup: kb - With: Private Physician - When: 2 - 3 days - Reason: Recheck today's complaints, Continuance of care, Re-evaluation by your physician Discharge Instructions: - Discharge Summary Sheet kb - Musculoskeletal Pain kb - Head Injury, Adult, [id number] kb - Laceration Care, Adult, [id number] kb Forms: - Medication Reconciliation Form kb - Thank You Letter kb - Antibiotic Education kb - Prescription Opioid Use kb Signatures: Dispatcher [employer] Precious Mcgarry, MICROBIOLOGICAL LABORATORY TECHNICIAN-C MICROBIOLOGICAL LABORATORY TECHNICIAN-Nelli Newton, RN RN ap3
--- NOTE | 2021-06-07 12:17 | ER ---
Nurse's Notes [facility] Name: Naila Dunbar Age: 80 yrs Sex: Female : 1940 Arrival Date: 06/07/2021 Time: 09:43 Bed 4 Private MD: Diagnosis: Pain in right arm;Pain in right hip;Unspecified injury of head, initial encounter;Laceration without foreign body of scalp Presentation: 06/07 10:01 Chief complaint: Patient states: she fell last night at approx 730pm. Patient doesn't ap3 recall the actual fall, and is unaware if there was any LOC. Patient denies blood thinners. Patient presents with a laceration to the right side of her head and pain in her right arm. Coronavirus screen: At this time, the client does not indicate any symptoms associated with coronavirus-19. Ebola Screen: No symptoms or risks identified at this time. Initial Sepsis Screen: Does the patient meet any 2 criteria? Yes Does the patient have a suspected source of infection? No. Patient's initial sepsis screen is negative. Risk Assessment: Do you want to hurt yourself or someone else? Patient reports no desire to harm self or others. Onset of symptoms was June 06, 2021. 10:01 Method Of Arrival: Ambulatory ap3 10:01 Acuity: NYLA 3 ap3 10:07 Care prior to arrival: None. Mechanism of Injury: Fall from standing position. Trauma ap3 event details: Injury occurred in the [facility], Injury occurred: at home. Injury occurred: June 06, 2021 Injury occurred at: 19:30. Triage Assessment: 10:05 General: Appears in no apparent distress. Behavior is calm, cooperative, appropriate ap3 for age. Pain: Complains of pain in head, right arm Pain currently is 4 out of 10 on a pain scale. Neuro: Level of Consciousness is awake, alert, obeys commands, Oriented to person, place, time, situation, Speech is normal. Cardiovascular: Patient's skin is warm and dry. Respiratory: Airway is patent Respiratory effort is even, unlabored, Respiratory pattern is regular, symmetrical. Derm: Wound noted right temporal area. Historical: - Allergies: 10:04 No Known Allergies; ap3 - PMHx: 10:04 Diabetes - NIDDM; Hypertension; ap3 - Immunization history:: Client reports receiving the 2nd dose of the Covid vaccine, Last tetanus immunization: unknown, Pneumococcal vaccine is up to date, Flu vaccine is up to date. - Social history:: Smoking status: Patient denies any tobacco usage or history of. Patient uses alcohol, on a daily basis. reports having wine nightly. Screenin:07 Abuse screen: Denies threats or abuse. Nutritional screening: No deficits noted. ap3 Tuberculosis screening: No symptoms or risk factors identified. 12:40 Fall Risk Fall in past 12 months (25 points). jh6 Primary Survey: 10:06 NO uncontrolled hemorrhage observed. Breathing/Chest: Respiratory pattern: regular, ap3 Respiratory effort: spontaneous. Circulation: Skin color: pink, Skin temperature: warm. Disability Alert. Exposure/Environment: A warming method has been applied: A warm blanket has been provided to the patient. Assessment: 10:19 General: Appears in no apparent distress. Behavior is calm, cooperative, appropriate jh6 for age. 10:25 General: Behavior is pt states that last night when she bent over she thinks she passed jh6 out and fell, striking rt side of her head hip and rt elbow.. Pain: Complains of pain in head, pelvis and right arm Pain currently is 6 out of 10 on a pain scale. Quality of pain is described as aching, tender, Pain began suddenly, 1 day ago. Is continuous, Aggravated by increased activity. Neuro: No deficits noted. Level of Consciousness is awake, alert, obeys commands. Vital Signs: 10:01 BP 128 / 94; Pulse 74; Resp 19; Temp 98.1; Pulse Ox 98% ; Weight 85.28 kg; Height 5 ft. ap3 6 in. (167.64 cm); Pain 4/10; 12:05 BP 133 / 87; Pulse 74; Resp 17; Pulse Ox 99% on R/A; tw2 12:37 BP 112 / 51; Pulse 67; Resp 18; Pulse Ox 97% on R/A; ss7 10:01 Body Mass Index 30.34 (85.28 kg, 167.64 cm) ap3 [place] Coma Score: 10:07 Eye Response: spontaneous(4). Verbal Response: oriented(5). Motor Response: obeys ap3 commands(6). Total: 15. 12:05 Eye Response: spontaneous(4). Verbal Response: oriented(5). Motor Response: obeys tw2 commands(6). Total: 15. Trauma Score (Adult): 10:07 Eye Response: spontaneous(1); Verbal Response: oriented(1); Motor Response: obeys ap3 commands(2); Systolic BP: > 89 mm Hg(4); Respiratory Rate: 10 to 29 per min(4); [place] Score: 15; Trauma Score: 12 12:05 Eye Response: spontaneous(1); Verbal Response: oriented(1); Motor Response: obeys tw2 commands(2); Systolic BP: > 89 mm Hg(4); Respiratory Rate: 10 to 29 per min(4); [place] Score: 15; Trauma Score: 12 ED Course: 09:43 Patient arrived in ED. as 09:58 Precious Miranda FNP-C is [facility] kb 09:58 Vance Celaya MD is Attending Physician. kb 10:04 Triage completed. ap3 10:06 Thermoregulation: warm blanket given to patient. tw2 10:07 Arm band placed on right wrist. ap3 10:07 Patient maintains SpO2 saturation greater than 95% on room air. ap3 10:08 Bed in low position. Call light in reach. Side rails up X2. Adult w/ patient. tw2 10:18 Ruby Damon, RN is Primary Nurse. jh6 10:29 Pulse ox on. NIBP on. Door closed. Noise minimized. Lights dimmed. jh6 10:[address] via stretcher. jh6 10:47 CT Head C Spine In Process Unspecified. EDMS 11:08 Humerus Right XRAY In Process Unspecified. EDMS 11:08 Forearm Right XRAY In Process Unspecified. EDMS 11:08 Hip Right 2 View XRAY In Process Unspecified. EDMS 12:38 Patient did not have IV access during this emergency room visit. ss7 12:40 wound cleaned with iodine and saline. aprox 100cc. jh6 Administered Medications: No medications were administered Outcome: 12:16 Discharge ordered by . kb 12:38 Discharged to home ambulatory. ss7 12:38 Condition: good 12:38 Discharge instructions given to patient. 12:41 Patient left the ED. 6 Signatures: Dispatcher [employer] EDMS Precious Miranda FNP-C FNP-Ckb Martinez, Amelia as Wise Cris, RN RN tw2 Nelli Mendoza, RN RN ap3 Ruby Damon, RN RN jh6 Bess Krishnamurthy, RN RN ss7
[2021-06-07 13:36] VITALS: TEMP 98.1
[2021-06-07 13:38] VITALS: BP 112/51; O2SAT 97
== END 2021-06-07 12:41 | disposition home or self-care (01) ==
LOC: ER 09:41
PROC: 0JQ00ZZ Repair Scalp Subcutaneous Tissue and Fascia, Open Approach (ICD-10-PCS; principal; 2021-06-07)
DX: S01.01XA Laceration without foreign body of scalp, initial encounter (principal); M25.551 Pain in right hip; M79.601 Pain in right arm; W18.30XA Fall on same level, unspecified, initial encounter; Y93.01 Activity, walking, marching and hiking; I10 Essential (primary) hypertension
CPT/HCPCS: 70450; 72125; 99284

== ENCOUNTER 2021-06-15 13:20 | Emergency (ER) | payer OTHER, MEDICARE ==
--- OUTSIDE RECORDS SUMMARY | 2021-06-15 13:24 | XMS REPORT | Continuity of Care Document ---
:1940 Author Organization [facility] t Address [address] [place] [address] Care Team Providers Name Role Phone Unavailable Unavailable Unavailable Payers Payer Name Policy Type Policy Number Effective Date Expiration Date S ource Problems This patient has no known problems. Allergies, Adverse Reactions, Alerts Allergy Allergy Status Severity Reaction(s) Onset Inactive Treating Comm ents Source Name Type Date Date Clinician No Known DA Active U [facility] All[facility]ie 2-19 [place] [facility] 00[facility] Medications This patient has no known medications. Procedures This patient has no known procedures. Results Test Description Test Time Test Comments Results Result [facility] e Comments - XR FLUORO FOR 2019-02-13 Patient Name: SPINE INJ 16:12:00 STEWART HUGHES Unit No: [id number] Report Has Been Amended EXAMS: CPT CODE: [id number] XR FLUORO FOR SPINE INJ 68807 Addendum - 02/13/2019 SIGNED 02/13/2019 ADDENDUM: [id number] RAD/FLLOCSPI LUMBAR TRANSFORAMINAL INJECTION REFERRING PHYSICIAN: PREOPERATIVE [...] on 01/14/2019 3:51:27 PM by Rashel Peterson. [facility] NAME: STEWART HUGHES [address] [facility] PHYS: DOCUD - Rashel Peterson MD [place], [place] [address] : 1940 AGE: 77 SEX: F LOC: UNK PHONE #: [phone] EXAM DATE: 10/06/2018 STATUS: [facility] FAX #: [phone] RAD #: D/C DT PAGE 1 Signed Report (CONTINUED) Patient Name: STEWART HUGHES Unit No: [id number] Report Has Been Amended EXAMS: CPT CODE: [id number] XR FLUORO FOR SPINE INJ 90060 <Continued> LUMBAR FACET INJECTION REFERRING PHYSICIAN: PREOPERATIVE [...] taken to the PACU in good condition. [facility] NAME: STEWART HUGHES [address] [facility] PHYS: DANNY - Rashel Peterson MD [place], [place] [address] : 1940 AGE: 77 SEX: F LOC: K PHONE #: [phone] EXAM DATE: 10/06/2018 STATUS: [facility] FAX #: [phone] RAD #: D/C DT PAGE 2 Signed Report (CONTINUED) Patient Name: STEWART HUGHES Unit No: [id number] Report Has Been Amended EXAMS: CPT CODE: [id number] XR FLUORO FOR SPINE INJ 73282 <Continued> at 1612 Reported and signed by: Rashel Peterson M.D. Addendum - 01/14/2019 SIGNED 01/14/2019 ADDENDUM: [id number] RAD/FLLOCSPI LUMBAR FACET INJECTION REFERRING PHYSICIAN: PREOPERATIVE [...] 10 mg of triamcinolone was injected incrementally [facility] NAME: STEWART HUGHES [address] [facility] PHYS: DOCUD - DoctorRashel MD [place], [place] [address] : 1940 AGE: 77 SEX: F LOC: UNK PHONE #: [phone] EXAM DATE: 10/06/2018 STATUS: [facility] FAX #: [phone] RAD #: D/C DT PAGE 3 Signed Report (CONTINUED) Patient Name: STEWART HUGHES Unit No: [id number] Report Has Been Amended EXAMS: CPT CODE: [id number] XR FLUORO FOR SPINE INJ 60340 <Continued> with frequent negative aspirations. There were [...] Then, 1 ml of Isovue-300 contrast was [facility] NAME: STEWART HUGHES [address] [facility] PHYS: DOCUD - Doctor,Rashel Dennison MD [place], [place] [address] : 1940 AGE: 77 SEX: F LOC: UNK PHONE #: [phone] EXAM DATE: 10/06/2018 STATUS: [facility] FAX #: [phone] RAD #: D/C DT PAGE 4 Signed Report (CONTINUED) Patient Name: STEWART HUGHES Unit No: [id number] Report Has Been Amended EXAMS: CPT CODE: [id number] XR FLUORO FOR SPINE INJ 53658 <Continued> injected to produce the epidurograms. No [...] MD Technologist: BABAK PABON RT(R) Transcribed D/ (3038) Michelle [facility] [place] [facility] NAME: STEWART HUGHES [address] [place] [address] PHYS: Rashel Anderson MD [place] [address] : 1940 AGE: 77 SEX: F LOC: UNK PHONE #: [phone] EXAM DATE: 10/06/2018 STATUS: [facility] FAX #: [phone] RAD #: D/C DT PAGE 5 Signed Report Patient Name: STEWART HUGHES Unit No: [id number] Report Has Been Amended EXAMS: CPT CODE: [id number] XR FLUORO FOR SPINE INJ 36270 <Continued> Orig Print D/T: S: 10/06/2018 (1572) [facility] [place] [facility] NAME: STEWART HUGHES [address] [place] [address] PHYS: Rashel Anderson MD [place] [address] : 1940 AGE: 77 SEX: F LOC: UNK PHONE #: [phone] EXAM DATE: 10/06/2018 STATUS: [facility] FAX #: [phone] RAD #: D/C DT PAGE 6 Signed Report - XR FLUORO FOR 2019-01-14 Patient Name: SPINE INJ 15:51:00 STEWART HUGHES Unit No: [id number] Report Has Been Amended EXAMS: CPT CODE: [id number] XR FLUORO FOR SPINE INJ 34019 Addendum - 01/14/2019 SIGNED 01/14/2019 ADDENDUM: [id number] RAD/FLLOCSPI LUMBAR FACET INJECTION REFERRING PHYSICIAN: PREOPERATIVE [...] taken to the PACU in good condition. [facility] NAME: STEWART HUGHES [address] [facility] PHYS: DOCUD - Doctor,Rashel Dennison MD [place], [place] [address] : 1940 AGE: 77 SEX: F LOC: [facility] PHONE #: [phone] EXAM DATE: 10/06/2018 STATUS: [facility] FAX #: [phone] RAD #: D/C DT PAGE 1 Signed Report (CONTINUED) Patient Name: STEWART HUGHES Unit No: [id number] Report Has Been Amended EXAMS: CPT CODE: [id number] XR FLUORO FOR SPINE INJ 91556 <Continued> at 1551 Reported and signed by: [...] subsequent level was done using the same [facility] NAME: STEWART HUGHES [address] [facility] PHYS: DOCUD - Rashel Peterson MD [place], [place] [address] : 1940 AGE: 77 SEX: F LOC: UNK PHONE #: [phone] EXAM DATE: 10/06/2018 STATUS: [facility] FAX #: [phone] RAD #: D/C DT PAGE 2 Signed Report (CONTINUED) Patient Name: STEWART HUGHES Unit No: [id number] Report Has Been Amended EXAMS: CPT CODE: [id number] XR FLUORO FOR SPINE INJ 77423 <Continued> technique and medications. The patient's vital signs remained stable. The patient was taken to the PACU in good condition. at 1321 Reported and signed by: Rashel Peterson M.D. CC: Hernán Fried MD; Rashel Peterson MD Technologist: BABAK PABON RT(R) Transcribed D/ (2829) Michelle [facility] NAME: STEWART HUGHES [address] [facility] PHYS: DANNY - Rashel Peterson MD [place], [place] [address] : 1940 AGE: 77 SEX: F LOC: UNK PHONE #: [phone] EXAM DATE: 10/06/2018 STATUS: [facility] FAX #: [phone] RAD #: D/C DT PAGE 3 Signed Report Patient Name: STEWART HUGHES Unit No: [id number] Report Has Been Amended EXAMS: CPT CODE: [id number] XR FLUORO FOR SPINE INJ 11704 <Continued> Orig Print D/T: S: 10/06/2018 (5880) [facility] [place] [facility] NAME: STEWART HUGHES [address] [facility] PHYS: DANNY - Rashel Peterson MD [place], [place] [address] : 1940 AGE: 77 SEX: F LOC: UNK PHONE #: [phone] EXAM DATE: 10/06/2018 STATUS: [facility] FAX #: [phone] RAD #: D/C DT PAGE 4 Signed Report - XR FLUORO FOR 2018-10-06 Patient Name: SPINE INJ 13:21:00 STEWART HUGHES Unit No: [id number] EXAMS: CPT CODE: [id number] XR FLUORO FOR SPINE INJ 47355 LUMBAR TRANSFORAMINAL INJECTION REFERRING PHYSICIAN: PREOPERATIVE DIAGNOSIS: [...] Reported and signed by: Rashel Peterson M.D. [facility] NAME: STEWART HUGHES [address] [facility] PHYS: DOCUD - Rashel Peterson MD [place], [place] [address] : 1940 AGE: 77 SEX: F LOC: EDDY PHONE #: [phone] EXAM DATE: 10/06/2018 STATUS: REG [facility] FAX #: [phone] RAD #: D/C DT PAGE 1 Signed Report (CONTINUED) Patient Name: STEWART HUGHES Unit No: [id number] EXAMS: CPT CODE: [id number] XR FLUORO FOR SPINE INJ 20392 <Continued> CC: Hernán Fried MD; Rashel Peterson MD Technologist: BABAK PABON RT(R) Transcribed D/ (8271) MaggiD [facility] NAME: STEWART HUGHES [address] [facility] PHYS: Rashel Anderson MD [place] [address] : 1940 AGE: 77 SEX: F LOC: EDDY PHONE #: [phone] EXAM DATE: 10/06/2018 STATUS: REG [facility] FAX #: [phone] RAD #: D/C DT PAGE 2 Signed Report Patient Name: STEWART HUGHES Unit No: [id number] EXAMS: CPT CODE: [id number] XR FLUORO FOR SPINE INJ 96887 <Continued> Orig Print D/T: S: 10/06/2018 (1324) [facility] NAME: STEWART HUGHES [address] [facility] PHYS: Rashel Anderson MD [place] [address] : 1940 AGE: 77 SEX: F LOC: EDDY PHONE #: [phone] EXAM DATE: 10/06/2018 STATUS: [facility] FAX #: [phone] RAD #: D/C DT PAGE 3 Signed Report GLUBED 2018-10-06 12:20:00 Test Item Value Reference Range Interpretation Comme nts GLUBED (test code = GLUBED) 111 mg/dL 60-125 N [id number] 10:17:00 Test Item Value Reference Range Interpretation Comments GLUBED (test code = GLUBED) 129 mg/dL 60-125 H - XR FLUORO FOR SPINE [id number] 12:21:00 Patient Name: STEWART HUGHES Unit No: [id number] EXAMS: CPT CODE: [id number] XR FLUORO FOR SPINE INJ 02978 LUMBAR TRANSFORAMINAL INJECTION REFERRING PHYSICIAN:Deng Grover M.D. [...] Reported and signed by: Rashel Peterson M.D. [facility] NAME: STEWART HUGHES [address] PHYS: Rashel Anderson MD [place] [address] : 1940 AGE: 77 SEX: F LOC: EDDY PHONE #: [phone] EXAM DATE: 06/04/2018 STATUS: REG [facility] FAX #: [phone] RAD #: D/C DT PAGE 1 Signed Report (CONTINUED) Patient Name: STEWART HUGHES Unit No: [id number] EXAMS: CPT CODE: [id number] XR FLUORO FOR SPINE INJ 71724 <Continued> CC: Hernán Fried MD; Deng Grover MD Technologist: Kim Zepeda(R) Transcribed D/ (1221) Michelle [facility] NAME: HUGHESSTEWART [address] [facility] [address] PHYS: Rashel Anderson MD [place] [address] : 1940 AGE: 77 SEX: F LOC: EDDY PHONE #: [phone] EXAM DATE: 06/04/2018 STATUS: REG [facility] FAX #: [phone] RAD #: D/C DT PAGE 2 Signed Report Patient Name: STEWART HUGHES Unit No: [id number] EXAMS: CPTCODE: [id number] XR FLUORO FOR SPINE INJ 52841 <Continued> Orig Print D/T: S: 06/04/2018 (1225) [facility] NAME: MARCO A HUGHESE [address] [facility] [address] PHYS: Rashel Anderson MD [place] [address] : 1940 AGE: 77 SEX: F LOC: EDDY PHONE #: [phone] EXAM DATE: 06/04/2018 STATUS: REG [facility] FAX #: [phone] RAD #: D/C DT PAGE 3 Signed Report [id number] 11:49:00 Test Item Value Reference Range Interpretation Comments GLUBED (test code = GLUBED) 117 mg/dL 60-125 N [id number] 10:36:00 Test Item Value Reference Range Interpretation Comments GLUBED (test code = GLUBED) 115 mg/dL 60-125 N
[2021-06-15] MEDS ORDERED: TETANUS & DIPHTHERIA TOX,ADULT 0.5 ML VIAL ONE (13:45)
--- NOTE | 2021-06-15 14:37 | RAD REPORT ---
EXAM DESCRIPTION: CT - CTHCSPWOC - 06/15/2021 2:07 pm CLINICAL HISTORY: PAIN, fall, head and neck injury COMPARISON: Head C Spine Mpr Wo Con dated 06/07/2021 TECHNIQUE: Axial 5 mm thick images of the head were obtained. Axial 2 mm thick images of the cervic al spine were obtained with sagittal and coronal reconstruction images generated and reviewed. All CT scans are performed using dose optimization technique as appropriate and may include automated exposure control or mA/KV adjustment according to patient size. FINDINGS: No acute epidural or subdural hematoma identifiable. There is a thin 3-4 mm maximum thickn ess low-density collection along the inner table of the right-side lateral and superior skull coverin g the parietal and posterior frontal lobes. This was not clearly seen on the June 07 study. Att enuation is decreased relative to the underlying cerebral cortex. There is no mass effect. No midline shift. There is no intraparenchymal or subarachnoid acute hemorrhage. Patient has a right lateral scalp hematoma small in size with laceration. Patient has moderate severity atrophy matches the comparison. Ventricles remain in proportion to the amount of volume loss. No acute cortical based infarction. Chronic ischemic changes are mild for age. Mastoid air cells and paranasal sinuses are clear. No globe or orbit abnormality seen. Cervical bodies are normal in height. There is straightening of the usual cervical lordosis with slig ht reversal C4. Moderate disc space narrowing seen C3-6 region with mild C2-3 and C6-7 disc space hari rowing. Facet joint degenerative changes are present. Central spinal stenosis is present at C3-4 and borderline at C4-C7. No fracture or acute bony abnormality. No pathologic bone process. Central canal detail is inherently limited. No paraspinal mass or hematoma. IMPRESSION: No acute intracranial hemorrhage is present. No acute infarction change, edema or other acute intracranial finding. Patient has a small subacute to chronic right-sided subdural hematoma 3-4 mm in maximum thickness. Th ere is no mass effect on the adjacent brain parenchyma. This is new from the May comparison. Advanced cervical spine degenerative changes including spinal stenosis and foraminal stenosis. Findi ngs are stable from May with no fracture or acute process seen.
--- NOTE | 2021-06-15 15:16 | RAD REPORT ---
EXAM DESCRIPTION: Shoulder Right 2 View - 06/15/2021 2:31 pm CLINICAL HISTORY: PAIN COMPARISON: Humerus Right dated 06/07/2021 TECHNIQUE: Internal and external rotation views of the right shoulder were obtained. FINDINGS: No fracture or dislocation of the humeral head. Acromial humeral joint space is effaced. T here is increased concavity to the undersurface of the acromion with sclerotic changes near the artic ular margin. The acromion has been displaced superiorly relative to the head of the clavicle. This is a configuration typically seen with chronic rotator cuff tear. No acute AC joint finding. No abnorm al soft tissue calcifications. No pathologic changes. IMPRESSION: Right shoulder degenerative change with chronic rotator cuff tear findings. No acute finding. No new finding from June 07 imaging.
--- NOTE | 2021-06-15 15:39 | EDPHYS ---
Physician Documentation [facility] Name: Naila Dunbar Age: 80 yrs Sex: Female : 1940 Arrival Date: 06/15/2021 Time: 13:25 Bed 9 Private MD: ED Physician Kt Sullivan HPI: 06/15 15:32 This 80 yrs old Female presents to ER via EMS with complaints of Fall Injury. caden 15:32 Details of fall: The patient fell from an upright position, while walking. Onset: The caden symptoms/episode began/occurred just prior to arrival. Associated injuries: The patient sustained injury to the head, contusion, laceration, pain, anterior aspect of right shoulder and posterior aspect of right shoulder, decreased range of motion. Severity of symptoms: At their worst the symptoms were mild, in the emergency department the symptoms are unchanged. The patient has not experienced similar symptoms in the past. Historical: - Allergies: 14:28 No Known Allergies; jg9 - PMHx: 13:30 Diabetes - NIDDM; Hypertension; ss - Immunization history:: Adult Immunizations up to date, . - Social history:: Smoking status: Patient/guardian denies using tobacco, the patient reports quitting approximately 50 years ago. - Family history:: not pertinent. ROS: 15:32 Constitutional: Negative for fever, chills, and weight loss, Eyes: Negative for injury, caden pain, redness, and discharge, ENT: Negative for injury, pain, and discharge, Neck: Negative for injury, pain, and swelling, Cardiovascular: Negative for chest pain, palpitations, and edema, Respiratory: Negative for shortness of breath, cough, wheezing, and pleuritic chest pain, Abdomen/GI: Negative for abdominal pain, nausea, vomiting, diarrhea, and constipation, Back: Negative for injury and pain, : Negative for injury, bleeding, discharge, and swelling, Skin: Negative for injury, rash, and discoloration, Neuro: Negative for headache, weakness, numbness, tingling, and seizure. 15:32 MS/extremity: Positive for decreased range of motion, pain, of the posterior aspect of right shoulder. 15:32 Skin: Positive for hematoma, laceration(s), of the right parietal area. Exam: 15:32 Constitutional: This is a well developed, well nourished patient who is awake, alert, caden and in no acute distress. Eyes: Pupils equal round and reactive to light, extra-ocular motions intact. Lids and lashes normal. Conjunctiva and sclera are non-icteric and not injected. Cornea within normal limits. Periorbital areas with no swelling, redness, or edema. ENT: Nares patent. No nasal discharge, no septal abnormalities noted. Tympanic membranes are normal and external auditory canals are clear. Oropharynx with no redness, swelling, or masses, exudates, or evidence of obstruction, uvula midline. Mucous membranes moist. Neck: Trachea midline, no thyromegaly or masses palpated, and no cervical lymphadenopathy. Supple, full range of motion without nuchal rigidity, or vertebral point tenderness. No Meningismus. Chest/axilla: Normal chest wall appearance and motion. Nontender with no deformity. No lesions are appreciated. Cardiovascular: Regular rate and rhythm with a normal S1 and S2. No gallops, murmurs, or rubs. Normal PMI, no JVD. No pulse deficits. Respiratory: Lungs have equal breath sounds bilaterally, clear to auscultation and percussion. No rales, rhonchi or wheezes noted. No increased work of breathing, no retractions or nasal flaring. Abdomen/GI: Soft, non-tender, with normal bowel sounds. No distension or tympany. No guarding or rebound. No evidence of tenderness throughout. Back: No spinal tenderness. No costovertebral tenderness. Full range of motion. Female : Normal external genitalia. Skin: Warm, dry with normal turgor. Normal color with no rashes, no lesions, and no evidence of cellulitis. Neuro: Awake and alert, GCS 15, oriented to person, place, time, and situation. Cranial nerves II-XII grossly intact. Motor strength 5/5 in all extremities. Sensory grossly intact. Cerebellar exam normal. Normal gait. Psych: Awake, alert, with orientation to person, place and time. Behavior, mood, and affect are within normal limits. 15:32 Head/face: Noted is contusion, that is deep, a laceration(s), that is superficial, 1 cm(s), of the right side of the back of head. Vital Signs: 14:00 BP 137 / 73; Pulse 64; Resp 17 S; Temp 97.5(O); Pulse Ox 98% ; Weight 85.28 kg (R); jg9 Height 5 ft. 6 in. (167.64 cm); Pain 4/10; 15:30 BP 105 / 88; Pulse 73; Resp 18 S; Pulse Ox 98% on R/A; jg9 14:00 Body Mass Index 30.34 (85.28 kg, 167.64 cm) jg9 MDM: 13:32 Patient medically screened. [facility] 15:32 Differential diagnosis: abrasion, closed head injury, contusion, fracture, laceration, caden sprain, strain. Data reviewed: vital signs, nurses notes, radiologic studies, CT scan, plain films. 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 Test interpretation: by ED physician or midlevel provider: plain radiologic studies. Counseling: I had a detailed discussion with the patient and/or guardian regarding: the historical points, exam findings, and any diagnostic results supporting the discharge/admit diagnosis, radiology results, the need for outpatient follow up, for definitive care, an machine scallop cutter, a neurologist. 06/15 13:33 Order name: CT Head C Spine; Complete Time: 14:58 [facility] 06/15 13:33 Order name: Shoulder Right (2 View) XRAY; Complete Time: 15:32 [facility] 06/15 13:33 Order name: Ice pack; Complete Time: 14:22 caden Administered Medications: 14:22 Drug: Tetanus-Diphtheria Toxoid Adult 0.5 ml {Inspector Conveyor Line: [employer]. Exp: jg9 09/02/2022. Lot #: [id number]. 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 caden - Contusion of right shoulder caden Followup: caden - With: Private Physician - When: 2 - 3 days - Reason: Recheck today's complaints, Continuance of care, Re-evaluation by your physician Followup: caden - With: Hernán Fried MD - When: 2 - 3 days - Reason: Recheck today's complaints, Continuance of care, Re-evaluation by your physician Followup: caden - With: Fransisco Srivastava MD - When: 2 - 3 days - Reason: Recheck today's complaints, Continuance of care, Re-evaluation by your physician Followup: caden - With: Freddy Dorantes MD - When: 2 - 3 days - Reason: Recheck today's complaints, Re-evaluation by your physician Discharge Instructions: - Discharge Summary Sheet caden - Head Injury, Adult caden - Fall Prevention in the Home, Adult caden - Shoulder Pain caden - Fall Prevention in the Home, Adult, [id number] caden - Head Injury, Adult, [id number] [facility] Forms: - Medication Reconciliation Form [facility] - Thank You Letter caden - Antibiotic Education [facility] - Prescription Opioid Use [facility] Prescriptions: - Tylenol 325 mg Oral Tablet - take 2 tablets by ORAL route every 6 hours as needed; 1 bottle; Refills: 0, caden Product Selection Permitted Signatures: Dispatcher [employer] tK Olguin MD MD cha Smirch, Shelby, RN RN ss Ruby Benito RN RN jg9
--- NOTE | 2021-06-15 15:39 | ER ---
Nurse's Notes [facility] Name: Naila Dunbar Age: 80 yrs Sex: Female : 1940 Arrival Date: 06/15/2021 Time: 13:25 Bed 9 Private MD: Diagnosis: Fall on same level, unspecified;Unspecified injury of head, initial encounter-small superficial scalp laceration;Traumatic subdural hemorrhage-subacute/chronic not acute;Contusion of right shoulder Presentation: 06/15 13:26 Chief complaint: Patient states: Mechanical fall 20 minutes ago. Pt tripped on a ramp ss at home, causing her to fall backwards. Hematoma noted to back of head. No active bleeding noted at this time. Denies LOC. Coronavirus screen: Client denies travel out of the [place] in the last 14 days. Ebola Screen: Patient denies exposure to infectious person. Patient denies travel to an Ebola-affected area in the 21 days before illness onset. Initial Sepsis Screen: Does the patient meet any 2 criteria? No. Patient's initial sepsis screen is negative. Does the patient have a suspected source of infection? No. Patient's initial sepsis screen is negative. Risk Assessment: Do you want to hurt yourself or someone else? Patient reports no desire to harm self or others. Onset of symptoms was June 15, 2021. Care prior to arrival: Glucose check: 126. 13:26 Method Of Arrival: EMS: [facility] 13:26 Acuity: NYLA 3 ss Triage Assessment: 14:00 General: Appears in no apparent distress. Behavior is calm, cooperative. Injury jg9 Description: Laceration sustained to scalp-r occipital region a small amount of bleeding noted at this time. 14:25 General: Appears. jg9 Historical: - Allergies: 14:28 No Known Allergies; jg9 - PMHx: 13:30 Diabetes - NIDDM; Hypertension; ss - Immunization history:: Adult Immunizations up to date, . - Social history:: Smoking status: Patient/guardian denies using tobacco, the patient reports quitting approximately 50 years ago. - Family history:: not pertinent. Screenin:24 Abuse screen: Denies threats or abuse. Denies injuries from another. Nutritional jg9 screening: No deficits noted. Tuberculosis screening: No symptoms or risk factors identified. Fall Risk Fall in past 12 months (25 points). Ambulatory Aid- Crutches/Cane/Walker (15 pts). Assessment: 14:20 Reassessment: No changes from previously documented assessment. Pain: Complains of pain jg9 in scalp. 15:30 Reassessment: No changes from previously documented assessment. jg9 Vital Signs: 14:00 BP 137 / 73; Pulse 64; Resp 17 S; Temp 97.5(O); Pulse Ox 98% ; Weight 85.28 kg (R); jg9 Height 5 ft. 6 in. (167.64 cm); Pain 4/10; 15:30 BP 105 / 88; Pulse 73; Resp 18 S; Pulse Ox 98% on R/A; jg9 14:00 Body Mass Index 30.34 (85.28 kg, 167.64 cm) j9 ED Course: 13:25 Patient arrived in ED. ss 13:30 Triage completed. ss 13:30 Arm band placed on right wrist. ss 13:32 Kt Sullivan MD is Attending Physician. caden 13:37 Ruby Benito, ANDREW is Primary Nurse. jg9 14:07 CT Head C Spine In Process Unspecified. EDMS 14:28 Patient has correct armband on for positive identification. Bed in low position. Call jg9 light in reach. 14:31 Shoulder Right (2 View) XRAY In Process Unspecified. EDMS 15:30 Awaiting radiology results. Awaiting disposition. jg9 15:36 Wound care: located on scalp and right side of the back of head and right parietal area jg9 was cleaned with with peroxide-loosen blood, Patient tolerated well. no open laceration noted. 15:38 No apparent distress. Resting quietly. Awaiting radiology results. jg9 15:39 Hernán Fried MD is Referral Physician. caden 15:39 Fransisco Srivastava MD is Referral Physician. caden 15:40 Freddy Dorantes MD is Referral Physician. caden 15:55 No provider procedures requiring assistance completed. jg9 15:56 Patient did not have IV access during this emergency room visit. jg9 Administered Medications: 14:22 Drug: Tetanus-Diphtheria Toxoid Adult 0.5 ml {Docking Pilot: [employer]. Exp: jg9 09/02/2022. Lot #: [id number]. } Route: IM; Site: right deltoid; 15:38 Follow up: Response: No adverse reaction jg9 Outcome: 15:39 Discharge ordered by . caden 15:55 Discharged to home via wheelchair. jg9 15:55 Condition: stable 15:55 Discharge instructions given to patient, Instructed on discharge instructions, follow up and referral plans. Demonstrated understanding of instructions, follow-up care, medications, Prescriptions given X 1. 15:56 Patient left the ED. jg9 Signatures: Dispatcher [employer] EDKt Harrison MD MD cha Smirch, Shelby, RN RN Ruby Olivas RN RN jg9
[2021-06-15 16:33] VITALS: TEMP 97.5; O2SAT 98
[2021-06-15 16:34] VITALS: BP 105/88
== END 2021-06-15 15:56 | disposition home or self-care (01) ==
LOC: ER 13:20
DX: S06.5X0A Traumatic subdural hemorrhage without loss of consciousness, initial encounter (principal); S01.01XA Laceration without foreign body of scalp, initial encounter; S40.011A Contusion of right shoulder, initial encounter; W18.30XA Fall on same level, unspecified, initial encounter; Z23 Encounter for immunization; I10 Essential (primary) hypertension; E11.9 Type 2 diabetes mellitus without complications
CPT/HCPCS: 70450; 72125; 90471; 90714; 99284

== ENCOUNTER 2023-08-05 11:18 | Emergency (ER) | payer OTHER, MEDICARE ==
[2023-08-05] MEDS ORDERED: MORPHINE 4 MG/ML SYR ONE (11:48)
[2023-08-05 12:09] LABS: Absolute Basophils 0.1 K/uL (0-0.5); Absolute Eosinophils 0.2 K/uL (0-0.5); Absolute Lymphocytes (CBC) 2.2 K/uL (0.7-4.9); Absolute Monocytes 0.5 K/uL (0.1-1.3); Absolute Neutrophil 5.7 K/uL (1.8-8.0); Basophils % 0.7 % (0-1.3); Eosinophils % 2.8 % (0-4.4); Hematocrit 44.2 % (36.0-45.0); Hemoglobin 14.9 g/dL (12.0-15.0); Lymphocytes % 25.2 % (15.3-44.8); MCH 34.9 pg (27.0-35.0); MCHC 33.8 g/dL (32.0-36.0); MCV 103.3 fL (80-100); MPV 10.2 fL (7.6-11.3); Monocytes % 6.3 % (3.3-12.3); Platelets 182 thou/uL (152-406); RBC Red Blood Cell Count 4.28 M/uL (3.86-4.86); Red Cell Distribution Width 14.2 % (12.1-15.2)
[2023-08-05 12:28] LABS: Albumin 3.7 g/dL (3.4-5.0); Albumin/Globulin Ratio 1.2 (1.1-1.8); Anion Gap 8.7 mEq/L (5.0-15.0); Bilirubin Total 0.7 mg/dL (0.2-1.0); Globulin 3.1 g/dL (2.3-3.5); Potassium 4.7 mEq/L (3.5-5.1); Protein, Total 6.8 g/dL (6.4-8.2)
--- NOTE | 2023-08-05 12:31 | RAD REPORT ---
EXAM DESCRIPTION: CT - Abdomen Pelvis Wo Contrast - 08/05/2023 11:41 am CLINICAL HISTORY: low right sided back pain COMPARISON: Stone Protocol dated 05/12/2020 TECHNIQUE: Thin cut axial CT imaging of the abdomen and pelvis was performed without IV contrast. Mu ltiplanar reformats were generated and reviewed. All CT scans are performed using dose optimization technique as appropriate and may include automated exposure control or mA/KV adjustment according to patient size. FINDINGS: No suspicious findings in the lung bases. The liver, spleen, adrenal glands, and pancreas show no suspicious findings. Gallbladder was surgical ly removed. 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 Bilateral parapelvic and cortical cysts, grossly stable in appearance. Symmetric renal con tour, without other suspicious parenchymal findings within limits of noncontrast technique. No eviden ce of radiopaque calculi or hydroureteronephrosis. No dilated bowel loops or bowel wall thickening. Mild colonic diverticulosis. No free air, free fluid or inflammatory stranding. No hernia, mass or bulky lymphadenopathy. The urinary bladder is without significant finding. No suspicious bony findings. IMPRESSION: No acute intra-abdominal process. Stable findings as above.
[2023-08-05] MEDS ORDERED: DIAZEPAM 5 MG TABLET ONE (13:05)
--- NOTE | 2023-08-05 13:12 | EDPHYS ---
Physician Documentation [facility] Name: Naila Dunbar Age: 82 yrs Sex: Female : 1940 Arrival Date: 08/05/2023 Time: 11:18 Bed 14 Private MD: ED Physician Parish Frey HPI: 08/04 20:12 This 82 yrs old Female presents to ER via EMS with complaints of Back Pain. ms3 20:12 82 yo female with pmh of DM and HTN presented to the ED via [facility] for right ms3 lower back pain. Patient states the pain was present for 2 weeks. Patient stated she bent over this AM and the pain became worse. EMS states they administered 324 mg ASA and obtained an IV. Patient notes her pain to be a 10/10. Historical: - Allergies: 11:27 No Known Allergies; rs5 - PMHx: 11:27 Diabetes - NIDDM; Hypertension; rs5 - PSHx: 11:27 None; rs5 - Immunization history:: Adult Immunizations up to date. - Infectious Disease History:: Denies. - Social history:: Smoking status: Patient denies any tobacco usage or history of. ROS: 20:12 Constitutional: Negative for fever, and chills. Neck: Negative for injury, pain, and ms3 swelling, Cardiovascular: Negative for chest pain, and palpitations. Respiratory: Negative for shortness of breath, cough, wheezing, and pleuritic chest pain, Abdomen/GI: Negative for abdominal pain, nausea, vomiting, diarrhea, and constipation, 20:12 Back: Positive for pain with movement, Exam: 20:12 Constitutional: This is a well developed, well nourished patient who is awake, alert, ms3 and in no acute distress. Head/Face: Normocephalic, atraumatic. Chest/axilla: Normal chest wall appearance and motion. Nontender with no deformity. Cardiovascular: Regular rate and rhythm with a normal S1 and S2. No gallops, murmurs, or rubs. Normal PMI, no JVD. No pulse deficits. Respiratory: Lungs have equal breath sounds bilaterally, clear to auscultation and percussion. No rales, rhonchi or wheezes noted. No increased work of breathing, no retractions or nasal flaring. Abdomen/GI: Soft, non-tender, with normal bowel sounds. No distension or tympany. No guarding or rebound. No evidence of tenderness throughout. Skin: Warm, dry with normal turgor. Normal color with no rashes, no lesions, and no evidence of cellulitis. 20:12 Back: pain, that is moderate, of the right low back, normal spinal alignment noted, vertebral tenderness, is not appreciated, muscle spasm, is appreciated in the right low back, Vital Signs: 11:28 BP 140 / 81; Pulse 70; Resp 18; Temp 97.8(O); Pulse Ox 99% on R/A; rs5 13:25 BP 130 / 78; Pulse 76; Resp 18; Pulse Ox 99% on R/A; rs5 MDM: 11:24 Patient medically screened. ms3 20:12 Differential diagnosis: chronic back pain, Fatigue ruptured disc, vertebral fracture. ms3 Data reviewed: vital signs, nurses notes, lab test result(s), radiologic studies, and as a result, I will discharge patient. I considered the following discharge prescriptions or medication management in the emergency department Medications were administered in the Emergency Department. See MAR. Historians other than the Patient: EMS: [facility]. Care significantly affected by the following chronic conditions: Diabetes, Hypertension. Counseling: I had a detailed discussion with the patient and/or guardian regarding the historical points, exam findings, and any diagnostic results supporting the discharge/admit diagnosis, lab results, radiology results, the need for outpatient follow up, to return to the emergency department if symptoms worsen or persist or if there are any questions or concerns that arise at home. Special discussion: I discussed with the patient/guardian in detail that at this point there is no indication for admission to the hospital. It is understood, however, that if the symptoms persist or worsen the patient needs to return immediately for re-evaluation. ED course: Discussed CT and labs with patient. Patient to follow up with PMD in 2-3 days. Patient understands/ agrees with plan. All questions answered. Return precautions discussed to include worsening symptoms, or any other concerns. On re-evaluation patient symptoms had improved, patient was a/o x4, nad, non-toxic appearing.. 08/04 11:25 Order name: CBC with Diff; Complete Time: 12:45 ms3 08/04 11:25 Order name: CMP; Complete Time: 12:45 ms3 08/04 11:25 Order name: CT Abd/Pelvis - Without Contrast; Complete Time: 12:45 ms3 08/04 11:25 Order name: IV Saline Lock; Complete Time: 12:09 ms3 08/04 11:25 Order name: Labs collected and sent; Complete Time: 12:09 ms3 Administered Medications: 11:50 Drug: morphine IVP or IV 4 mg IVP once over 4 mins Route: IVP; Infused Over: 4 mins; rs5 Site: left forearm; 12:10 Follow up: Response: No adverse reaction rs5 13:12 Drug: Diazepam PO 5 mg PO once Route: PO; rs5 13:20 Follow up: Response: No adverse reaction rs5 Disposition: 20:31 Chart complete. ms3 Disposition Summary: 08/05/23 13:12 Discharge Ordered Notes: Location: Home ms3 Condition: Stable ms3 Diagnosis - Low back pain ms3 Followup: ms3 - With: Private Physician - When: 2 - 3 days - Reason: Recheck today's complaints Discharge Instructions: - Discharge Summary Sheet ms3 - Acute Back Pain, Adult ms3 Forms: - Medication Reconciliation Form ms3 - Thank You Letter ms3 - Antibiotic Education ms3 - Prescription Opioid Use ms3 - Patient Portal Instructions ms3 - Leadership Thank You Letter ms3 Prescriptions: - Cyclobenzaprine 10 mg Oral Tablet - take 1 tablet ORAL route every 8 hours As needed; 30 tablet; Refills: 0, ms3 Product Selection Permitted Signatures: Dispatcher [employer] EDMS Parish Frey DO DO ms3 Sami Coppola RN RN rs5 Corrections: (The following items were deleted from the chart) 11: 11:26 CBC+H.LAB.BRZ ordered. EDMS EDMS 11: 11:26 COMPREHENSIVE METABOLIC PANEL+C.LAB.BRZ ordered. EDMS EDMS 11: 11:26 Urinalysis+U.LAB.BRZ ordered. EDMS EDMS
--- NOTE | 2023-08-05 13:12 | ER ---
Nurse's Notes [facility] Name: Naila Dunbar Age: 82 yrs Sex: Female : 1940 Arrival Date: 08/05/2023 Time: 11:18 Bed 14 Private MD: Diagnosis: Low back pain Presentation: 08/04 11:26 Chief complaint: EMS states: "Right sided lower back pain". Coronavirus screen: At this rs5 time, the client does not indicate any symptoms associated with coronavirus-19. Ebola Screen: No symptoms or risks identified at this time. Risk Assessment: Do you want to hurt yourself or someone else? Patient reports no desire to harm self or others. Onset of symptoms was August 05, 2023. 11:26 Method Of Arrival: EMS: [facility] rs5 11:26 Acuity: [facility] 3 rs5 11:28 Initial Sepsis Screen: Does the patient meet any 2 criteria? No. Patient's initial rs5 sepsis screen is negative. Does the patient have a suspected source of infection? No. Patient's initial sepsis screen is negative. 11:30 Care prior to arrival: IV initiated. 20 GA, in the left forearm. rs5 Historical: - Allergies: 11:27 No Known Allergies; rs5 - PMHx: 11:27 Diabetes - NIDDM; Hypertension; rs5 - PSHx: 11:27 None; rs5 - Immunization history:: Adult Immunizations up to date. - Infectious Disease History:: Denies. - Social history:: Smoking status: Patient denies any tobacco usage or history of. Screenin:25 [facility] ED Fall Risk Assessment (Adult) History of falling in the last 3 months, rs5 including since admission No falls in past 3 months (0 pts) Confusion or Disorientation No (0 pts) Intoxicated or Sedated No (0 pts) Impaired Gait No (0 pts) Mobility Assist Device Used No (0 pt) Altered Elimination No (0 pt) Score/Fall Risk Level 0 - 2 = Low Risk Oriented to surroundings, Maintained a safe environment. Abuse screen: Denies threats or abuse. Nutritional screening: No deficits noted. Tuberculosis screening: No symptoms or risk factors identified. Assessment: 11:25 General: Appears in no apparent distress. uncomfortable, Behavior is calm, cooperative. rs5 Pain: Complains of pain in lower back Pain currently is 8 out of 10 on a pain scale. Quality of pain is described as aching, Is continuous. Neuro: Level of Consciousness is awake, alert, obeys commands, Oriented to person, place, time, situation, Intact. Cardiovascular: Patient's skin is warm and dry. Rhythm is regular. Respiratory: Airway is patent Respiratory effort is even, unlabored, Respiratory pattern is regular, symmetrical. GI: Abdomen is round non-distended, Abd is soft and non tender. : No signs and/or symptoms were reported regarding the genitourinary system. EENT: No signs and/or symptoms were reported regarding the EENT system. Derm: Skin is intact, Skin is pink, warm \\T\\ dry. Musculoskeletal: Circulation, motion, and sensation intact. 12:40 Reassessment: Patient and/or family updated on plan of care and expected duration. Pain rs5 level reassessed. Patient is alert, oriented x 3, equal unlabored respirations, skin warm/dry/pink. Patient states feeling better. Patient states symptoms have improved. 13:20 Reassessment: No changes from previously documented assessment. rs5 Vital Signs: 11:28 BP 140 / 81; Pulse 70; Resp 18; Temp 97.8(O); Pulse Ox 99% on R/A; rs5 13:25 BP 130 / 78; Pulse 76; Resp 18; Pulse Ox 99% on R/A; rs5 ED Course: 11:24 Patient arrived in ED. ms3 11:24 Parish Frey DO is Attending Physician. ms3 11:25 Patient has correct armband on for positive identification. Placed in gown. Bed in low rs5 position. Call light in reach. Side rails up X2. 11:25 No provider procedures requiring assistance completed. rs5 11:26 Sami Coppola, RN is Primary Nurse. rs5 11:27 Triage completed. rs5 11:43 CT Abd/Pelvis - Without Contrast In Process Unspecified. EDMS 13:37 IV discontinued, intact, bleeding controlled, No redness/swelling at site. Pressure rs5 dressing applied. Administered Medications: 11:50 Drug: morphine IVP or IV 4 mg IVP once over 4 mins Route: IVP; Infused Over: 4 mins; rs5 Site: left forearm; 12:10 Follow up: Response: No adverse reaction rs5 13:12 Drug: Diazepam PO 5 mg PO once Route: PO; rs5 13:20 Follow up: Response: No adverse reaction rs5 Medication: 12:18 VIS not applicable for this client. rs5 Outcome: 13:12 Discharge ordered by . ms3 13:37 Discharged to home ambulatory, rs5 13:37 Condition: stable 13:37 Discharge instructions given to patient, family, Instructed on discharge instructions, follow up and referral plans. medication usage, Demonstrated understanding of instructions, follow-up care, medications, Prescriptions given X 1, 13:41 Patient left the ED. rs5 Signatures: Dispatcher [employer] EDMS Parish Frey DO DO ms3 Sami Coppola RN RN rs5 Corrections: (The following items were deleted from the chart) 11:29 11:28 BP 140 / 81; Pulse 70bpm; Resp 18bpm; Pulse Ox 99% RA; rs5 rs5 08/05 10:30 08/04 13:05 Reassessment: No changes from previously documented assessment. rs5 rs5 08/05 10:31 08/04 13:05 BP 130 / 78; Pulse 76bpm; Resp 18bpm; Pulse Ox 99% RA; rs5 rs5
[2023-08-05] MEDS ORDERED: HYDROCODONE/APAP 5/325 MG TAB ONE (13:34)
[2023-08-05 14:33] VITALS: BP 140/81; TEMP 97.8; O2SAT 99
== END 2023-08-05 13:41 | disposition home or self-care (01) ==
LOC: ER 11:18
DX: M54.50 Low back pain, unspecified (principal); E11.9 Type 2 diabetes mellitus without complications; I10 Essential (primary) hypertension
CPT/HCPCS: 36415; 74176; 80053; 85025; 96374; 99284